=== PATIENT | female | born 1935 | race Caucasian/White ===

== ENCOUNTER 2019-01-10 08:57 | Outpatient (RCR) | payer MEDICARE, MEDICAID, SELFPAY ==
[2019-01-10 09:39] VITALS: BP 150/73; PULSE 94; RESP 18; TEMP 36.1; BMI 27.1
--- NOTE | 2019-01-10 11:21 | HP.PCM_ITS ---
(1) Cat bite involving extremity Status: Acute Current Visit: Yes (2) Abscess of right lower leg Status: Acute Current Visit: Yes Code(s): L02.415 - Cutaneous abscess of right lower limb (3) Open wound of left forearm due to cat bite Status: Acute Current Visit: Yes Code(s): S51.852A - Open bite of left forearm, initial encounter; W55.01XA - Bitten by cat, initial encounter History of Present Illness Chief Complaint: Cat bite of right leg and left forearm. History of Wound: Ms. Hayes is an 83-year-old who was in her stable state of health until Monday when she was bitten by her own cat. Was subsequently seen at an urgent care and started on doxycycline. Was also seen by her primary care physician yesterday due to worsening right lower extremity discharge. She was subsequently referred here by her primary care physician. She reports significant pain in her right leg and noted chills and subjective feeling of fever yesterday. So far, she reports compliance with the antibiotic she was prescribed ( Doxycycline ). Past Medical History Allergies/Adverse Reactions: Allergies azithromycin [From Zithromax] Adverse Reaction (Verified 01/10/19 11:15) Nausea cephalexin [From Keflex] Adverse Reaction (Verified 01/10/19 11:15) Nausea ciprofloxacin [From Cipro] Adverse Reaction (Verified 01/10/19 11:15) Nausea erythromycin base Adverse Reaction (Verified 01/10/19 11:15) Nausea sulfamethoxazole [From Bactrim] Adverse Reaction (Verified 01/10/19 11:15) Nausea trimethoprim [From Bactrim] Adverse Reaction (Verified 01/10/19 11:15) Nausea Home Medications: Ambulatory Orders Medication Instructions Recorded Omeprazole 20 mg PO DAILY 01/10/19 Smoking Status: Never smoker Review of Systems Constitutional: Reports: Chills, Fever, Malaise. Denies: Anorexia Eyes: Denies: Blurred vision, Pain HEENT: Denies: Difficulty Swallowing Cardiovascular: Denies: Chest Pain, Chest Tightness Gastrointestinal: Denies: Abdominal Pain, Hematemesis, Vomiting Skin: Denies: Jaundice - Physical Exam Vital Signs Temp Pulse Resp BP 97 F L 94 18 150/73 H 01/10/19 09:39 01/10/19 09:39 01/10/19 09:39 01/10/19 09:39 General: Alert, Oriented x3, Cooperative, No apparent distress HEENT: Atraumatic, Normocephalic Oral: Moist Mucosa Neck: Supple Lungs: Normal air movement Extremities: No cyanosis Skin: Ulcer/ Wound Wound Measurements and Assessment WC - Nurse 1 - General Ulcer Measurement Start: 01/10/19 09:12 Freq: Status: Active Protocol: Activity Type Activity Date Activity User E-Sign Co-Sign Detail Recorded Client Recorded Date Recorded By Document 01/10/19 10:08 RB [id number] 01/10/19 10:14 NAVIN 01/10/19 10:08 Wound Center Nurse 1 [Ulcer Assessment] 3. R lateral LE -Current Size (cm) - Length 0.3 -Current Size (cm) - Width 0.6 -Current Size (cm) - Depth 0.2 -Total Square Cm 0.18 -Photo Taken Yes -Tunneling No -Undermining/Tunneling No -Circular Undermining No -Exudate Amt Small -Exudate Type Serosanguineous -Granulation Amt Medium (34-66%) -Granulation Quality [place] -Slough/Fibrin Yes -Necrosis Amt Medium (34-66%) -Necrotic Tissue Type Adherent Slough -Structure Exposed N/A -Texture (Eden-wound Skin Appearance) Assessed -Moisture (Eden-wound Skin Appearance Assessed ) -Color (Eden-wound Skin Appearance) Assessed Erythema -Temperature (Eden-wound Skin No Abnormality Appearance) (Pt Warm) -Tenderness on Palpation (Eden-wound No Skin Appearance) -Ulcer Cleansing Rinsed/ Irrigated with Saline -Foul Odor after Cleansing Yes -Anesthetic Used 5% Lidocaine Gel 2. R posterior LE cluster -Combined with other wound No -Current Size (cm) - Length 3.5 -Current Size (cm) - Width 4.2 -Current Size (cm) - Depth 0.8 -Total Square Cm 14.70 -Tunneling No -Undermining/Tunneling No -Circular Undermining No -Exudate Amt Medium -Exudate Type Serosanguineous -Wound Margin Thickened & Rolled Under -Granulation Amt Medium (34-66%) -Granulation Quality [place] -Slough/Fibrin Yes -Necrosis Amt Medium (34-66%) -Necrotic Tissue Type Adherent Slough -Texture (Eden-wound Skin Appearance) Assessed -Moisture (Eden-wound Skin Appearance Assessed ) -Color (Eden-wound Skin Appearance) Erythema Hemosiderin Staining -Temperature (Eden-wound Skin No Abnormality Appearance) (Pt Warm) -Tenderness on Palpation (Eden-wound No Skin Appearance) -Ulcer Cleansing Wound Cleanser -Foul Odor after Cleansing Yes -Anesthetic Used 5% Lidocaine Gel 1. L arm medial -Combined with other wound No -Current Size (cm) - Length 0.4 -Current Size (cm) - Width 0.4 -Current Size (cm) - Depth 0.1 -Total Square Cm 0.16 -Tunneling No -Undermining/Tunneling No -Circular Undermining No -Exudate Amt Small -Exudate Type Serosanguineous -Wound Margin Distinct, Outline Attached -Granulation Amt Large (67-100%) -Granulation Quality [place] -Slough/Fibrin Yes -Necrosis Amt Small (1-33%) -Necrotic Tissue Type Adherent Slough -Structure Exposed N/A -Texture (Eden-wound Skin Appearance) Assessed -Moisture (Eden-wound Skin Appearance Assessed ) -Color (Eden-wound Skin Appearance) Assessed -Temperature (Eden-wound Skin No Abnormality Appearance) (Pt Warm) -Tenderness on Palpation (Eden-wound No Skin Appearance) -Ulcer Cleansing Wound Cleanser -Foul Odor after Cleansing No -Anesthetic Used 5% Lidocaine Gel [Edema Assessment] -Lower Limb Edema Present Yes -Right Calf (cm) 36.5 -Right Ankle (cm) 22.5 -Left Calf (cm) 34.5 -Left Ankle (cm) 20.5 WC - Nurse 2 - General Ulcer CM Notes Start: 01/10/19 09:12 Freq: Status: Active Protocol: Activity Type Activity Date Activity User E-Sign Co-Sign Detail Recorded Client Recorded Date Recorded By Document 01/10/19 10:24 MW [id number] 01/10/19 10:39 MW 01/10/19 10:24 Wound Center Nurse 2 [Procedure/Treatment] 3. R lateral LE -Time 10:29 -Correct Patient Yes -Correct Side, Site, Position Yes -Correct Procedure Yes -Procedure Performed No -Wound/Ulcer Outcome Not Healed -Ulcer Cleansing Rinsed/ Irrigated with Saline -Foul Odor after Cleansing No -Bioengineered Tissue No -Bleeding Controlled with Pressure -Offloading No -Treatment Response Procedure Tolerated Well 2. R posterior LE cluster -Time 10:30 -Correct Patient Yes -Correct Side, Site, Position Yes -Correct Procedure Yes -Procedure Performed Yes -Type of Procedure Debridement -Clinical Debridement Subcutaneous -Post Debridement Size (cm) - Length 3.5 -Post Debridement Size (cm) - Width 4.2 -Post Debridement Size (cm) - Depth 0.8 -Total Square Cm 14.70 -Wound/Ulcer Outcome Not Healed -Ulcer Cleansing Rinsed/ Irrigated with Saline -Foul Odor after Cleansing No -Bioengineered Tissue No -Injectable Lidocaine w/ Epi (%) 1 -Bleeding Controlled with Pressure -Offloading No -Treatment Response Procedure Tolerated Well 1. L arm medial -Time 10:30 -Correct Patient Yes -Correct Side, Site, Position Yes -Correct Procedure Yes -Procedure Performed No -Wound/Ulcer Outcome Not Healed -Foul Odor after Cleansing No -Bioengineered Tissue No -Bleeding Controlled with Pressure -Offloading No -Treatment Response Procedure Tolerated Well [See Physician Procedure note for Specifics] Pain Scale: 0-10 Numeric [Pain] -Is Patient Pain Free? Yes Musculoskeletal: No Muscle Wasting Neurological: Cranial nerves II-XII grossly intact Psych/Mental Status: Normal Affect Debridement Note Post-Debridement Measurements/Treatment WC - Nurse 2 - General Ulcer CM Notes Start: 01/10/19 09:12 Freq: Status: Active Protocol: Activity Type Activity Date Activity User E-Sign Co-Sign Detail Recorded Client Recorded Date Recorded By Document 01/10/19 10:24 MW [id number] 01/10/19 10:39 MW 01/10/19 10:24 Wound Center Nurse 2 3. R lateral LE -Time 10:29 -Correct Patient Yes -Correct Side, Site, Position Yes -Correct Procedure Yes -Procedure Performed No -Wound/Ulcer Outcome Not Healed -Ulcer Cleansing Rinsed/ Irrigated with Saline -Foul Odor after Cleansing No -Bioengineered Tissue No -Bleeding Controlled with Pressure -Offloading No -Treatment Response Procedure Tolerated Well 2. R posterior LE cluster -Time 10:30 -Correct Patient Yes -Correct Side, Site, Position Yes -Correct Procedure Yes -Procedure Performed Yes -Type of Procedure Debridement -Clinical Debridement Subcutaneous -Post Debridement Size (cm) - Length 3.5 -Post Debridement Size (cm) - Width 4.2 -Post Debridement Size (cm) - Depth 0.8 -Total Square Cm 14.70 -Wound/Ulcer Outcome Not Healed -Ulcer Cleansing Rinsed/ Irrigated with Saline -Foul Odor after Cleansing No -Bioengineered Tissue No -Injectable Lidocaine w/ Epi (%) 1 -Bleeding Controlled with Pressure -Offloading No -Treatment Response Procedure Tolerated Well 1. L arm medial -Time 10:30 -Correct Patient Yes -Correct Side, Site, Position Yes -Correct Procedure Yes -Procedure Performed No -Wound/Ulcer Outcome Not Healed -Foul Odor after Cleansing No -Bioengineered Tissue No -Bleeding Controlled with Pressure -Offloading No -Treatment Response Procedure Tolerated Well Pain Scale: 0-10 Numeric Is Patient Pain Free? Yes Wound debrided: Right Lower Extremity ( Posterior ) Wound Grade/Stage: Stage III Type of Debridement: Excisional debridement Anesthesia Used: 4% Lidocaine Solution Depth: in the subcutaneous layer Percentage of wound debrided: 100 Instrument Used: 5mm curette Tissue Removed: Necrotic tissue and devitalized tissue Severity: Necrosis of Muscle Amount of bleeding with debridement: Moderate Bleeding Controlled with: Pressure Patient did not tolerate procedure well Assessment/Plan Active Problems Cat bite involving extremity (Acute) Abscess of right lower leg (Acute) Open wound of left forearm due to cat bite (Acute) Assessment: Right lower extremity abscess with necrotic tissue extending to the muscles post cat bite. Plan: Debridement attempted at the wound center however significant depth and necrotic tissue as described above. Purulent discharge as well. Patient in so much pain and could not tolerate debridement here. I however believe that she would require surgical debridement and so I referred her to the emergency room for possible consult/evaluation by plastic surgery/orthopedic surgery. Case discussed with emergency room physician. Their ( Here with her daughter ) questions were answered and they were advised to call with any further questions or concerns. This note was generated with [employer] software. It may contain incorrect words, spelling, and punctuation that were not noted in checking the note before signing.
== END 2019-01-18 23:59 ==
LOC: WC 08:57
PROVIDERS: Family Provider Family Medicine; PCP Family Medicine; Visit Provider Internal Medicine
DX: S51.852A Open bite of left forearm, initial encounter (principal); W55.01XA Bitten by cat, initial encounter; L02.415 Cutaneous abscess of right lower limb
CPT/HCPCS: 11042; 99203; G0463

== ENCOUNTER 2019-01-10 11:12 | Inpatient (IN) | payer MEDICARE, MEDICAID, SELFPAY ==
[2019-01-10 09:39] VITALS: BMI 27.1
[2019-01-10 11:12] VITALS: BP 144/75; PULSE 98; RESP 16; TEMP 36.6; O2SAT 96; BMI 27.1
--- NOTE | 2019-01-10 11:37 | ED.VISSUMM ---
- ER Visit Summary Date of Service: 01/10/19 Chief Complaint cat bite right calf Monday on doxycycline seen by wound care sent to the ER failed outpatient therapy to be seen by plastic surgery or Ortho History of Present Illness: The patient is a 83 F [] is healthy she indicates her cat became aggravated she tried to assist the cat and the cat ended up biting her and scratching her right lower leg Monday she was seen in urgent care shortly thereafter started on doxycycline she can follow-up with her primary care physician Monday who referred her to [facility], she was seen there today by Dr bustillo, after evaluation center to the emergency department to be further evaluated by Dr. ackerman of plastic surgery or Dr. Jackson of orthopedics for further debridement and inpatient management as she is failed outpatient management She reports area is red and tender there is been no drainage she indicates she is able to walk but has pain she had no nausea or vomiting or fever she is not prone to infection she denies any other past history Physical Examination: [] v signs within normal range General, no distress resting comfortably HEENT is generally unremarkable The neck is supple no adenopathy Cardiovascular, regular rate and rhythm Lungs, clear bilateral Abdomen, soft nontender Extremities, right lower leg mid calf position there is a bite dennis with multiple puncture wounds that have some blackness to them, there is no drainage there is redness about 4 to 6 cm circular pattern no lymphangitic streaking the calf is tender but again no signs of deep-seated infection at this time the distal ankle area there is a contusion over the lateral malleolus she loosening of twisted her ankle then as well, but she has no pain to palpation and full range of motion was able to walk she has multiple scratch perez throughout the right lower leg the left lower leg and upper extremities are unremarkable Neurologic, awake alert answering questions appropriately moving all 4 extremities Test Results: [] Emergency Department Course and Treatment: [] Staff spoke with plastic surgery office they are not available to see the patient we have paged orthopedics at this time we will start IV fluids screening labs IV antibiotics she will likely require inpatient management due to failure of outpatient therapy and will try to arrange subspecialty consultation either through the emergency department or after admission Treatment Plan: [] Screening labs are unremarkable IV fluids and biotics given, I did speak with orthopedics who recommended the plastic surgery be consulted once the patient gets admitted, I spoke with the hospitalist explained all the above to them and they will arrange for admission and further subspecialty management Disposition: [] Admit after hospitalist evaluation Impression: [] Cat bite right lower leg failure of outpatient therapy This note was generated with Vudu dictation software. It may contain incorrect words, spelling, and punctuation that were not noted in review of the chart prior to signing ED Disposition - Plan for ED Patient: Referrals: Marifer Marquez [Primary Care Provider] -
[2019-01-10] MEDS: Ondansetron 4 MG/2 ML Vial IV ×2 (11:58→18:42)
[2019-01-10] MEDS: morphine 8 MG/ML Syringe IV (11:58)
[2019-01-10] MEDS: 0.9% Normal Saline 1,000 ML 100 ML IV ×2 (11:59→22:41)
[2019-01-10 12:17] LABS: Absolute Lymphocyte Count 0.58 X10^3/ul (0.83-4.51); Absolute Neutrophil Count 5.9 X10^3/uL (2.0-7.7); Basophil# 0.02 X10^3/uL; Basophil% 0.3 % (0-1); Eosinophil# 0.01 X10^3/uL; Eosinophils% 0.1 % (0-5); Hematocrit 34.1 % (37-47); Lymphocyte # 0.58 X10^3/ul (4.0); Lymphocyte % 8.5 % (19-41); Mean Corp Hgb Conc 32.3 g/gl (32-36); Mean Corpuscular Hgb 31.3 pg (27.0-32.0); Mean Corpuscular Volume 97.2 fL (81-99); Mean Platelet Vol. 9.7 fl (6.2-12.0); Monocyte# 0.35 X10^3/uL; Monocyte% 5.1 % (0-10); Neutrophil # 5.88 X10^3/uL (2.7-7.7); Neutrophil % 85.9 % (47-70); Platelet Count 293 K/mm3 (150-450); RBC Distribution Width CV 12.6 % (11.6-14.6); RBC Distribution Width SD 42.9 fl (35.1-43.9); Red Blood Count 3.51 M/mm3 (4.2-5.4); White Blood Count 6.9 K/mm3 (4.4-11.0)
[2019-01-10 12:18] LABS: Differential Indicated SCAN CRITERIA MET; POSITIVE COUNT NO; POSITIVE DIFFERENTIAL YES; POSITIVE MORPHOLOGY NO
--- NOTE | 2019-01-10 12:20 | RAD_ITS ---
STUDY: X-RAY - RIGHT TIBIA AND FIBULA REASON FOR EXAM: Female, 83 years old. Pain and swelling and redness following cat bite. TECHNIQUE: 2 view(s) of the tibia and fibula were obtained. COMPARISON: None. FINDINGS: Normal visualized tibia. Normal visualized fibula. Focal soft tissue laceration is seen along the posterior mid calf. No radiopaque foreign body is seen. RAD/Tibia & Fibula 2 Views IMPRESSION: Soft tissue laceration in the posterior mid calf. Electronically Signed: Diomedes Peres, at 12:45 EDT , Service support ,
[2019-01-10 12:28] LABS: Anion Gap 4 (5-15); BUN 7 mg/dL (7-18); BUN/Creat Ratio 14.9 RATIO (10-20); Calcium,Total 9.8 mg/dL (8.5-10.1); Chloride 109 mmol/L (98-107); Creatinine, Serum 0.47 mg/dL (0.55-1.02); EST Glomerular Filtration Rate 135 mL/min (>60); Est Glom Filt Rate - Afr Amer 163 mL/min (>60); Estimated Creatinine Clearance 37.45 ml/min; Glucose 96 mg/dL (74-106); Potassium 3.5 mmol/L (3.5-5.1); Sodium Level 140 mmol/L (136-145)
--- NOTE | 2019-01-10 12:37 | HP.PCM_ITS ---
History of Present Illness Date of Admission: 01/10/19 Chief Complaint: pain in right calf, cat bite The patient is a 83 year old F with no significant past medical history. She was admitted through the ED on 01/10/2019. Patient states she was bitten by her cat on her right lower extremity 6 days ago on Monday. She subsequently noticed redness and discharge from the puncture wounds on her right calf. She went to the urgent care center and was prescribed doxycycline which she was compliant with. However redness and swelling did not resolve and worsened. She also went to her PCP who referred her to the wound care clinic today. Patient went to the wound care clinic where debridement was attempted but this was unsuccessful due to severe pain and was also noted that there was necrotic tissue extending to the calf muscles. She was therefore referred to the emergency room for debridement by plastic surgery orthopedic surgery. Patient does admit to a subjective feeling of fever and chills as well as at home but has been able to weight-bear on the leg. She has noticed discharge from the puncture wound site as well as increasing redness. Review of systems is otherwise negative. Vitals in the ED was stable and CBC showed no leukocytosis. X-ray of the right tibia and fibula showed soft tissue laceration in the posterior mid calf. She was started on IV Zosyn in the ED. She has been admitted to be managed for cellulitis of the right lower extremity due to cat bite. [] Past Medical History Allergies azithromycin [From Zithromax] Adverse Reaction (Verified 01/10/19 11:15) Nausea cephalexin [From Keflex] Adverse Reaction (Verified 01/10/19 11:15) Nausea ciprofloxacin [From Cipro] Adverse Reaction (Verified 01/10/19 11:15) Nausea erythromycin base Adverse Reaction (Verified 01/10/19 11:15) Nausea sulfamethoxazole [From Bactrim] Adverse Reaction (Verified 01/10/19 11:15) Nausea trimethoprim [From Bactrim] Adverse Reaction (Verified 01/10/19 11:15) Nausea Home Medications: Ambulatory Orders Medication Instructions Recorded Doxycycline Hyclate 100 mg PO BID 01/10/19 Omeprazole 20 mg PO DAILY 01/10/19 Surgical History: no surgical history Psychiatric History: No pertinent psych hx 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 Denies: Anorexia, Malaise, Weakness, Fatigue Eyes: Denies: Blurred vision HEENT: Denies: Head Aches, Sinus Congestion, Sinus Drainage Cardiovascular: Denies: Chest Pain, Chest Pressure, Light Headedness, Orthopnea, Palpitations Respiratory: Denies: Cough, Shortness of breath at rest, Sputum production Gastrointestinal: Denies: Abdominal Pain, Nausea, Vomiting Genitourinary: Denies: Dysuria Musculoskeletal: Reports: Leg Pain, Muscle pain Skin: Reports: Wounds. Denies: Rash Neurological: Denies: Numbness, Tingling, Focal weakness Psychiatric: Denies: Anxiety, Depression, Homicidal Ideations, Suicidal Ideations Hematologic/ Lymphatic: Denies: Easy Bruising, Easy Bleeding VTE Information - Inpt Only VTE Present on Admission: No VTE Pharm Prophylaxis ordered?: Yes Patient Problems: Active and Suspected Problems Cat bite involving extremity (Acute) Abscess of right lower leg (Acute) Open wound of left forearm due to cat bite (Acute) - Physical Exam General: Alert, Oriented x3, Cooperative, No apparent distress HEENT: Atraumatic, PERRLA, EOMI, Normocephalic Oral: Moist Mucosa Neck: Supple, No JVD, Negative Carotid Bruits Lungs: Clear to auscultation, Normal air movement, No rhonchi, No wheeze, No rales Cardiovascular: Regular rate, Regular Rhythm, Normal S1, Normal S2, No murmurs Abdomen: Bowel Sounds Present, Soft, Non Tender, Non-Distended, No Hepato- splenomegaly Extremities: No edema, Capillary Refill Less than 3 Seconds Skin: - - blackened puncture wounds (2) on calf, with surrounding erythema and swelling as well as tenderness. has numerous scratch perez over calf and henson. has clear drainage from puncture wounds. Musculoskeletal: - - tenderness on palpation of calf area. Lymphatic: No Cervical, Supraclavicular, or Inguinal Adenopathy Neurological: Cranial nerves II-XII grossly intact, Neuro grossly intact Psych/Mental Status: Normal Affect, Appropriate, Alert and oriented to time, place, person, mood and affect Vital Signs Temp Pulse Resp BP Pulse Ox 98 F 98 16 144/75 H 96 01/10/19 11:12 01/10/19 11:12 01/10/19 11:12 01/10/19 11:12 01/10/19 11:12 Oxygen Delivery Method Room Air Weight: 158 lb Body Mass Index (BMI) 27.1 Laboratory Tests Past 24 Hrs 01/10/19 01/10/19 12:02 12:02 WBC 6.9 RBC 3.51 L Hgb 11.0 L Hct 34.1 L MCV 97.2 MCH 31.3 MCHC 32.3 RDW 12.6 RDW Differential 42.9 Plt Count 293 MPV 9.7 Immature Gran % (Auto) 0.100 Neut % (Auto) 85.9 H Lymph % (Auto) 8.5 L Early % (Auto) 5.1 Eos % (Auto) 0.1 Baso % (Auto) 0.3 Absolute Neuts (auto) 5.9 Absolute Lymphs (auto) 0.58 L Total Counted Pending Sodium 140 Potassium 3.5 Chloride 109 H Carbon Dioxide 27.0 Anion Gap 4 L BUN 7 Creatinine 0.47 L Estim Creat Clear Calc 37.45 Est GFR (MDRD) Af Amer 163 Est GFR (MDRD) Non-Af 135 BUN/Creatinine Ratio 14.9 Glucose 96 Calcium 9.8 Diagnostic Data Tibia/Fibula X-Ray 01/10/19 12:20 IMPRESSION: Soft tissue laceration in the posterior mid calf. Electronically Signed: Diomedes Peres, at 12:45 EDT , Service support , Assessment/Plan All Active Problems Cat bite involving extremity (Acute) Abscess of right lower leg (Acute) Open wound of left forearm due to cat bite (Acute) 83 y/o female admitted with redness and swelling of lower extremity 1. Cellulitis of the RLE due to cat bite * has necrotic tissue at puncture sites with oozing at puncture sites * admit to Med surg * order blood cultures * consult wound care nurse * consult plastic surgery for debridement * started on IV zosyn; will continue * tylenol prn for pain * cellulitic area demarcated with body marker * will get duplex of LE * DVT prophylaxis: lovenox Code Visit Inpatient E&M: 97669 Subs Hosp L3
--- NOTE | 2019-01-10 13:08 | CASEMGMT ---
RN CM Assessment Introduced role of RN CM to patient and patient Dtr Kinsey.? Patient is alert, oriented and able?to participate in RN CM Assessment. ?Care providers, pharmacy, and demographics verified. Presentation: Patient Cat bit her Rt Calf Monday, seen at and placed on Abx Doxycycline, f/u w/pcp Monday and referred to [facility]- seen Dr Diaz there today and referred to ER for failed Outpt Tx and to be evaluated by plastic surgeon Dr Salinas or Ortho Dr Jackson-Per ER MD Note. C/o Redness and Pain to Rt LE. Admit Dx: Cellulitis Re-Admit: No Barriers/Issues: None. PCP: Marifer Marquez Specialists: None Preferred Pharmacy: [facility] Insurance: [employer], [employer]AC[employer] Rx Benefit:?Yes LNOK: Dtr Kinsey Nadir LW/HPOA: Yes both, aware not on file at [facility], HPOA- Son Sawyer Durbin Living Arrangements:?Lives alone in a mobile home, 4 steps to enter ADL?s: Independent with ambulation and ADL's Transportation: Patient drives, Dtr Kinsey to drive on [place] DME: None HHC: Past. If HHC needed, no preference on Agency SNF: None Goal: Home, does not think will have any needs. States her children live nearby and would be able to help her if needed, good support system. DC PLAN: Home with possible HHC Wound Care vs Wound Ctr, Possible IV ABX- If Home IV Abx, states no preference on Infusion Ctr. Tiffanie Hernandez RNCM
[2019-01-10 13:34] VITALS: BP 128/80; PULSE 92; RESP 18; TEMP 36.5; O2SAT 98; BMI 27.2
--- NOTE | 2019-01-10 14:12 | VDLE_ITS ---
Reason For Study: RLE swelling/redness/cellulitis RIGHT LEFT GSV is normal. CFV is compressible, spontaneous, phasic, CFV is compressible, spontaneous, phasic, competent, and demonstrates normal competent and demonstrates normal augmentation. augmentation. FV is compressible, spontaneous, phasic, competent and demonstrates normal augmentation. POP V is compressible, spontaneous, phasic, competent and demonstrates normal augmentation. T/P Trunk is compressible. PTV is compressible. RT PerV is compressible. Procedure Exam performed portable in patient room. The study was technically limited. Unable to assess RT calf area due to open wound from cat bite. A preliminary report was called and/or faxed to [facility]. Interpretation Summary There is no evidence of right lower extremity deep vein thrombosis. Right greater saphenous vein appears patent and compressible segmentally. Normal flow patterns left common femoral vein Technically limited study as noted. Ordering Physician: Daja Del Castillo Referring Physician: Marifre Marquez Performed By: Rochelle Prater, KALYN, RVT
--- NOTE | 2019-01-10 14:39 | NURSING ---
wound photo: left forearm
--- NOTE | 2019-01-10 14:40 | NURSING ---
Addendum entered by Ivette Potter 01/10/19 14:42: right medial calf Original Note: wound photo: left medial calf
--- NOTE | 2019-01-10 14:41 | NURSING ---
wound photo: right lateral lower leg
--- NOTE | 2019-01-10 14:46 | CT_ITS ---
STUDY: CT LOWER EXTREMITY WITHOUT CONTRAST RIGHT REASON FOR EXAM: Female, 83 years old. Cat bite infection right lower leg. RADIATION DOSAGE (If Supplied By Facility): CTDIvol = ( 6.67 ) mGy, DLP = ( 342.09 ) mGycm. Individualized dose optimization techniques were used for this CT.? TECHNIQUE: Axial images were obtained from the knee through the ankle without contrast. Coronal and sagittal reformats were performed. COMPARISON: X-ray 01/10/2019. FINDINGS: There is a small joint effusion. There is moderate to severe osteoarthrosis of the patellofemoral compartment with joint space narrowing, lateral spurring, and subchondral cyst formation. There is lateral subluxation of the patella. There is no fracture or dislocation. No destructive bone changes are present. Soft tissue defect is noted in the posterior subcutaneous tissues at the calf level. There is mild infiltration of the subcutaneous fat consistent with edema or infection. There is no obvious organized collection. There is mild soft tissue gas consistent with bite wound/penetrating injury. Foci of gas extend to the perimuscular fascia superficial to the medial head of the gastrocnemius muscle. There is no gas or obvious inflammatory change deep to the fascia. Muscles of the leg are intact, with no hematoma. CT/Extremity Lower without Contra IMPRESSION: 1. Soft tissue swelling and gas consistent with bite wound. There is no organized collection. 2. Osteoarthrosis of the right knee. 3. Small knee effusion. Electronically Signed: Yasmeen Amaya MD at 17:22 EDT Tel , Service support ,
--- NOTE | 2019-01-10 14:50 | PCM.CONS.GEN ---
Reason for Consult Date of Consultation: 01/10/19 Reason for Consultation: Draining cat bite infection right posterior leg. REFERRING PHYSICIAN: Dr. Del Castillo. INSIDE SALES DIRECTOR: Dr. Davis. History of Present Illness: The patient is a 83 year old F who was bitten by her cat of 10 years 6 days ago. She sustained wounds to left volar forearm and right posterior leg. She started developing pain and redness and swelling. She went to the urgent care center who placed her on Doxycycline. Her symptomatology worsened and a few days later her PCP sent her to the [facility]. His WBC was 6.9. He was given Zosyn. After admission, he was started on Cleocin. She denied fever. I was asked to evaluate this patient for surgical options for treatment. Past Medical History Allergies azithromycin [From Zithromax] Adverse Reaction (Verified 01/10/19 11:15) Nausea cephalexin [From Keflex] Adverse Reaction (Verified 01/10/19 11:15) Nausea ciprofloxacin [From Cipro] Adverse Reaction (Verified 01/10/19 11:15) Nausea erythromycin base Adverse Reaction (Verified 01/10/19 11:15) Nausea sulfamethoxazole [From Bactrim] Adverse Reaction (Verified 01/10/19 11:15) Nausea trimethoprim [From Bactrim] Adverse Reaction (Verified 01/10/19 11:15) Nausea Current Medications Acetaminophen (Tylenol) 650 mg PO Q6H PRN Enoxaparin Sodium (Lovenox) 40 mg SC DAILY@1000 DIMAS Glucagon () 1 mg IM .X1 PRN Clindamycin Phosphate 900 mg/ (Dextrose) 106 mls @ 75 mls/hr IV Q8 DIMAS Oxycodone HCl (Oxyir) 5 mg PO Q4H PRN Pantoprazole Sodium (Protonix) 20 mg PO DAILY [facility] Home Medications: Ambulatory Orders Medication Instructions Recorded Omeprazole 20 mg PO DAILY 01/10/19 Surgical History: no surgical history Psychiatric History: No pertinent psych hx 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 Denies: Anorexia, Malaise, Weakness, Fatigue. Eyes: Denies: Blurred vision. HEENT: Denies: Head Aches, Sinus Congestion, Sinus Drainage. Cardiovascular: Denies: Chest Pain, Chest Pressure, Light Headedness, Orthopnea, Palpitations. Respiratory: Denies: Cough, Shortness of breath at rest, Sputum production. Gastrointestinal: Denies: Abdominal Pain, Nausea, Vomiting. Genitourinary: Denies: Dysuria. Musculoskeletal: Reports: Leg Pain, Muscle pain. Skin: Reports: Wounds. Denies: Rash. Neurological: Denies: Numbness, Tingling, Focal weakness. Psychiatric: Denies: Anxiety, Depression, Homicidal Ideations, Suicidal Ideations. Hematologic/ Lymphatic: Denies: Easy Bruising, Easy Bleeding Patient Problems: Active and Suspected Problems Open bite of right lower leg (Acute) infected cat bite wounds right posterior leg Cat bite (Acute) Cat bite involving extremity (Acute) Abscess of right lower leg (Acute) Open wound of left forearm due to cat bite (Acute) - Physical Exam General: Alert, Oriented x3. HEENT: PERRLA, EOMI. Oral: Moist Mucosa. Neck: Supple, Nontender. No cervical adenopathy. Lungs: Clear to auscultation. Cardiovascular: Regular rate, Regular Rhythm. Abdomen: Soft, Non-Distended. Extremities: Mild swelling right posterior leg. Tender to palpation. Some fat necrosis present with drainage. Multiple puncture wounds on posterior aspect. Surrounding erythema and swelling and tenderness. Measures 6 cm. Mild swelling right proximal lateral leg. Tender to palpation. Some fat necrosis present with purulent drainage. Multiple puncture wounds present. Some erythema present. Measures 5 cm. Dorsalis pedis pulses palpable. No inguinal adenopathy. Mild swelling volar radial left forearm. Good range of motion of fingers and wrist left hand. Small cat bite abrasion mid volar radial aspect. Nontender. No redness. No drainage. Radial pulses are palpable. No axillary adenopathy. No sensory deficits. Lymphatic: No Cervical, Supraclavicular, Axillary or Inguinal Adenopathy Neurological: Cranial nerves II-XII grossly intact. Psych/Mental Status: Normal Affect, Appropriate, Alert and oriented to time, place, person, mood and affect. Vital Signs Temp Pulse Resp BP Pulse Ox 97.7 F L 92 18 128/80 H 98 01/10/19 13:34 01/10/19 13:34 01/10/19 13:34 01/10/19 13:34 01/10/19 13:34 Oxygen Delivery Method Room Air Weight: 158 lb 11.2 oz Body Mass Index (BMI) 27.2 Laboratory Tests Past 24 Hrs 01/10/19 01/10/19 01/10/19 12:02 12:02 13:45 WBC 6.9 RBC 3.51 L Hgb 11.0 L Hct 34.1 L MCV 97.2 MCH 31.3 MCHC 32.3 RDW 12.6 RDW Differential 42.9 Plt Count 293 MPV 9.7 Immature Gran % (Auto) 0.100 Neut % (Auto) 85.9 H Lymph % (Auto) 8.5 L [place] % (Auto) 5.1 Eos % (Auto) 0.1 Baso % (Auto) 0.3 Absolute Neuts (auto) 5.9 Absolute Lymphs (auto) 0.58 L Total Counted Not Reportable Differential Comment COMMENT Sodium 140 Potassium 3.5 Chloride 109 H Carbon Dioxide 27.0 Anion Gap 4 L BUN 7 Creatinine 0.47 L Estim Creat Clear Calc 37.45 Est GFR (MDRD) Af Amer 163 Est GFR (MDRD) Non-Af 135 BUN/Creatinine Ratio 14.9 Glucose 96 Calcium 9.8 S.aureus Protein A PCR Pending MRSA (PCR) Pending Diagnostic Data Tibia/Fibula X-Ray 01/10/19 12:20 IMPRESSION: Soft tissue laceration in the posterior mid calf. Electronically Signed: Diomedes Peres, at 12:45 EDT , Service support , Assessment/Plan All Active Problems Open bite of right lower leg (Acute) Cat bite (Acute) Cat bite involving extremity (Acute) Abscess of right lower leg (Acute) Open wound of left forearm due to cat bite (Acute) 1. Infected cat bite wounds right posterior leg and right proximal lateral leg. 2. Nontender cat bite abrasion mid volar radial aspect left forearm. 3. Bitten by cat. Continue Cleocin antibiotics. Added Levaquin. A wound culture and MRSA Wound DNA by PCR were done today. Check a CT to evaluate for possible injury deep to the muscle. Patient needs operative intervention with surgical preparation right posterior leg and right proximal lateral leg with incision and drainage and excisional debridement infected cat bite wounds. Will leave the wounds open and begin postop care with the VAC and BERTIN wrap for compression. Tissue will be sent to Pathology for analysis and to Microbiology for culture. A positive culture will necessitate antibiotic therapy. If there is a plateau in the healing of the wound, can proceed with delayed closure with skin grafting. Keep right leg elevated when sitting. It is ok to ambulate. Minimize standing. Anticipate increased metabolic demands from the infection and from the surgery. Will check a Prealbumin and encourage nutritional supplementation with protein to help the healing process. The cat bite abrasion left forearm is nontender without evidence of infection and appears stable at this time. Can observe at present. If infection develops in the future, would need operative incision and drainage. Surgery will be done tomorrow under general anesthesia. Patient was informed of the risks and complications of the procedure including alternatives to surgery. These were discussed with the patient personally. Patient voices understanding and wishes to proceed. After discharge, can followup at the Wound Center. Code Visit Inpatient E&M: 23501 Init Hosp L2 - ICD-10 - W55.01xA, L02.415, S81.851A, S51.852A
--- NOTE | 2019-01-10 14:52 | CASEMGMT ---
Patient has both a Healthcare POA and Healthcare LW and she is aware they are not on file at [facility]. Ro SHAH MSW
[2019-01-10] MEDS: Acetaminophen 325 MG Tablet 650 MG PO ×2 (15:47→21:43)
[2019-01-10 16:11] LABS: M R Staph aureus DNA By PCR Negative (Negative); Staph aureus DNA By PCR NEGATIVE (Negative)
[2019-01-10 16:12] LABS: Probe Check PASS; Specimen Processing Control PASS
[2019-01-10] MEDS: levoFLOXacin IV 750 MG/150 ML BAG 100 MG IV (17:28)
[2019-01-10 19:30] VITALS: BP 128/77; PULSE 81; RESP 18; TEMP 37.1; O2SAT 96
[2019-01-10 21:45] VITALS: BP 125/69; PULSE 86; RESP 18; TEMP 37.1; O2SAT 95
[2019-01-11] VITALS (11 sets, daily range): BP systolic 126–144; BP diastolic 56–84; PULSE 77–100; RESP 16–18; TEMP 36.7–37.3; O2SAT 94–100; BMI 27.2
--- NOTE | 2019-01-11 05:58 | EKG12_ITS ---
Test Reason : PRE OP Blood Pressure : / mmHG Vent. Rate : 086 BPM Atrial Rate : 086 BPM P-R Int : 156 ms QRS Dur : 090 ms QT Int : 398 ms P-R-T Axes : 034 -09 044 degrees QTc Int : 476 ms Normal sinus rhythm Nonspecific ST abnormality Abnormal ECG No previous ECGs available Confirmed by WINTER REYNOLDS ([id number]), editor city GLENDY RENEE ([id number]) on 01/16/2019 12:52:27 PM Referred By: Daja Del Castillo Confirmed By:KALLIE REYNOLDS
[2019-01-11 07:41] LABS: Erythrocyte Sedimentation Rate 7 mm/hr (0-30)
[2019-01-11 07:42] LABS: Absolute Lymphocyte Count 0.61 X10^3/ul (0.83-4.51); Absolute Neutrophil Count 4.3 X10^3/uL (2.0-7.7); Basophil# 0.03 X10^3/uL; Basophil% 0.6 % (0-1); Eosinophil# 0.03 X10^3/uL; Eosinophils% 0.6 % (0-5); Hematocrit 29.8 % (37-47); Hemoglobin 9.6 g/dl (12.0-15.0); Lymphocyte # 0.61 X10^3/ul (4.0); Lymphocyte % 11.3 % (19-41); Mean Corp Hgb Conc 32.2 g/gl (32-36); Mean Corpuscular Hgb 31.4 pg (27.0-32.0); Mean Corpuscular Volume 97.4 fL (81-99); Mean Platelet Vol. 9.5 fl (6.2-12.0); Monocyte# 0.38 X10^3/uL; Neutrophil # 4.34 X10^3/uL (2.7-7.7); Neutrophil % 79.9 % (47-70); Platelet Count 249 K/mm3 (150-450); Red Blood Count 3.06 M/mm3 (4.2-5.4); White Blood Count 5.4 K/mm3 (4.4-11.0)
[2019-01-11 07:43] LABS: POSITIVE COUNT NO; POSITIVE DIFFERENTIAL NO; POSITIVE MORPHOLOGY NO
[2019-01-11] MEDS: Pantoprazole Sodium 20 MG Tablet PO (07:48)
[2019-01-11 08:09] LABS: Anion Gap 4 (5-15); BUN 5 mg/dL (7-18); BUN/Creat Ratio 11.1 RATIO (10-20); Chloride 109 mmol/L (98-107); Creatinine, Serum 0.45 mg/dL (0.55-1.02); EST Glomerular Filtration Rate 141 mL/min (>60); Est Glom Filt Rate - Afr Amer 171 mL/min (>60); Estimated Creatinine Clearance 37.45 ml/min; Glucose 95 mg/dL (74-106); Potassium 3.5 mmol/L (3.5-5.1); Prealbumin 16.8 mg/dL (20.0-40.0); Sodium Level 140 mmol/L (136-145)
[2019-01-11] MEDS: Acetaminophen 325 MG Tablet 650 MG PO ×3 (08:19→21:50)
--- NOTE | 2019-01-11 09:48 | PCM.PN.HOSP ---
Patient Problems: Active and Suspected Problems Open bite of right lower leg (Acute) infected cat bite wounds right posterior leg Cat bite (Acute) Cat bite involving extremity (Acute) Abscess of right lower leg (Acute) Open wound of left forearm due to cat bite (Acute) Subjective: Patient seen and examined. She has no complaints this morning. She only gets pain with her right lower extremity when she moves it. Review of systems otherwise negative. She is due for debridement by Dr. Reyes today. Labs and vitals reviewed. Vitals/I&O's: Vital Signs Temp Pulse Resp BP Pulse Ox 98.4 F 86 18 126/56 H 94 01/11/19 07:53 01/11/19 07:53 01/11/19 07:53 01/11/19 07:53 01/11/19 07:53 Oxygen Delivery Method Room Air Weight: 158 lb 11.2 oz Body Mass Index (BMI) 27.2 Intake and Output for Last 24 Hours 01/09/19 01/10/19 01/11/19 23:59 23:59 23:59 Intake Total 601 / 601 2064 Balance 601 / 601 2064 General: Alert, Oriented x3, Cooperative, No apparent distress HEENT: Atraumatic, PERRLA, EOMI, Normocephalic Oral: Moist Mucosa Neck: Supple, No JVD, Negative Carotid Bruits Lungs: Clear to auscultation, Normal air movement, No rhonchi, No wheeze, No rales Cardiovascular: Regular rate, Regular Rhythm, Normal S1, Normal S2, No murmurs Abdomen: Bowel Sounds Present, Soft, Non Tender, Non-Distended, No Hepato-splenomegaly Extremities: No edema, Capillary Refill Less than 3 Seconds Skin: - - RLE calf wrapped in clean bandage. Musculoskeletal: - - tenderness on palpation of calf area. Lymphatic: No Cervical, Supraclavicular, or Inguinal Adenopathy Neurological: Cranial nerves II-XII grossly intact, Neuro grossly intact Psych/Mental Status: Normal Affect, Appropriate, Alert and oriented to time, place, person, mood and affect Laboratory Results 01/10/19 12:02: WBC 6.9, RBC 3.51 L, Hgb 11.0 L, Hct 34.1 L, MCV 97.2, MCH 31.3, MCHC 32.3, RDW 12.6, RDW Differential 42.9, Plt Count 293, MPV 9.7, Immature Gran % (Auto) 0.100, Neut % (Auto) 85.9 H, Lymph % (Auto) 8.5 L, [place] % (Auto) 5.1, Eos % (Auto) 0.1, Baso % (Auto) 0.3, Absolute Neuts (auto) 5.9, Absolute Lymphs (auto) 0.58 L, Total Counted Not Reportable, Differential Comment COMMENT 01/10/19 12:02: Sodium 140, Potassium 3.5, Chloride 109 H, Carbon Dioxide 27.0, Anion Gap 4 L, BUN 7, Creatinine 0.47 L, Estim Creat Clear Calc 37.45, Est GFR (MDRD) Af Amer 163, Est GFR (MDRD) Non-Af 135, BUN/Creatinine Ratio 14.9, Glucose 96, Calcium 9.8 01/10/19 13:45: S.aureus Protein A PCR NEGATIVE, MRSA (PCR) Negative 01/11/19 06:08: WBC 5.4, RBC 3.06 L, Hgb 9.6 L, Hct 29.8 L, MCV 97.4, MCH 31.4, MCHC 32.2, RDW 13.0, RDW Differential 46.0 H, Plt Count 249, MPV 9.5, Immature Gran % (Auto) 0.600, Neut % (Auto) 79.9 H, Lymph % (Auto) 11.3 L, [place] % (Auto) 7.0, Eos % (Auto) 0.6, Baso % (Auto) 0.6, Absolute Neuts (auto) 4.3, Absolute Lymphs (auto) 0.61 L, Total Counted Not Reportable, ESR 7 01/11/19 06:08: Sodium 140, Potassium 3.5, Chloride 109 H, Carbon Dioxide 27.0, Anion Gap 4 L, BUN 5 L, Creatinine 0.45 L, Estim Creat Clear Calc 37.45, Est GFR (MDRD) Af Amer 171, Est GFR (MDRD) Non-Af 141, BUN/Creatinine Ratio 11.1, Glucose 95, Calcium 9.0, C-React Prot Ext Range 11.90 H, Prealbumin 16.8 L Diagnostic Data Tibia/Fibula X-Ray 01/10/19 12:20 IMPRESSION: Soft tissue laceration in the posterior mid calf. Electronically Signed: Diomedes Emilianasamsoraida, at 12:45 EDT , Service support , Lower Extremity CT 01/10/19 14:46 IMPRESSION: 1. Soft tissue swelling and gas consistent with bite wound. There is no organized collection. 2. Osteoarthrosis of the right knee. 3. Small knee effusion. Electronically Signed: Yasmeen Amaya MD at 17:22 EDT Tel , Service support , Current Medications Acetaminophen (Tylenol) 650 mg PO Q6H PRN PRN PRN Reason: Mild Pain (1-3)/Temp > 100.7 F Last Admin: 01/11/19 08:19 Dose: 650 mg Dextrose (D50w Syringe) 0 gm IV X1 PRN; Protocol PRN Reason: Hypoglycemia Enoxaparin Sodium (Lovenox) 40 mg SC DAILY@1000 DIMAS Last Admin: 01/11/19 07:19 Dose: Not Given Glucagon () 1 mg IM .X1 PRN PRN Reason: Hypoglycemia Sodium Chloride () 1,000 mls @ 100 mls/hr IV .Q10H [facility] Last Admin: 01/10/19 22:41 Dose: 100 mls/hr Clindamycin Phosphate 900 mg/ (Dextrose) 106 mls @ 75 mls/hr IV Q8 [facility] Last Admin: 01/11/19 05:41 Dose: 75 mls/hr Levofloxacin (Levaquin Iv) 750 mg in 150 mls @ 100 mls/hr IV Q48 [facility] Last Admin: 01/10/19 17:28 Dose: 100 mls/hr Ondansetron HCl (Zofran) 4 mg IV Q6H PRN PRN PRN Reason: NAUSEA Last Admin: 01/10/19 18:42 Dose: 4 mg Oxycodone HCl (Oxyir) 5 mg PO Q4H PRN PRN PRN Reason: Moderate Pain (4-6/10) Pantoprazole Sodium (Protonix) 20 mg PO DAILY [facility] Last Admin: 01/11/19 07:48 Dose: 20 mg Medical Necessity - Tobacco Use Smoking Status: Never smoker Assessment/Plan All Active Problems Open bite of right lower leg (Acute) Cat bite (Acute) Cat bite involving extremity (Acute) Abscess of right lower leg (Acute) Open wound of left forearm due to cat bite (Acute) 83 y/o female admitted with redness and swelling of lower extremity 1. Cellulitis of the RLE due to cat bite currently on IV clindamycin and IV levaquin CT of hte RLE showed soft tissue welling and gas consistent with bite wound, with no organised colection, osteoarthrosis of the right knee and small knee effusion. for debridement by plastic surgery today duplex of RLE pending. blood cultures pending DVT prophylaxis: lovenox Code Visit Inpatient E&M: 67785 Subs Hosp L3
--- NOTE | 2019-01-11 09:53 | PN_ITS ---
Patient Problems: Active and Suspected Problems Open bite of right lower leg (Acute) infected cat bite wounds right posterior leg Cat bite (Acute) Cat bite involving extremity (Acute) Abscess of right lower leg (Acute) Open wound of left forearm due to cat bite (Acute) Subjective: Patient seen and examined. She has no complaints this morning. She only gets pain with her right lower extremity when she moves it. Review of systems otherwise negative. She is due for debridement by Dr. Reyes today. Labs and vitals reviewed. Vitals/I&O's: Vital Signs Temp Pulse Resp BP Pulse Ox 98.4 F 86 18 126/56 H 94 01/11/19 07:53 01/11/19 07:53 01/11/19 07:53 01/11/19 07:53 01/11/19 07:53 Oxygen Delivery Method Room Air Weight: 158 lb 11.2 oz Body Mass Index (BMI) 27.2 Intake and Output for Last 24 Hours 01/09/19 01/10/19 01/11/19 23:59 23:59 23:59 Intake Total 601 / 601 2064 Balance 601 / 601 2064 General: Alert, Oriented x3, Cooperative, No apparent distress HEENT: Atraumatic, PERRLA, EOMI, Normocephalic Oral: Moist Mucosa Neck: Supple, No JVD, Negative Carotid Bruits Lungs: Clear to auscultation, Normal air movement, No rhonchi, No wheeze, No rales Cardiovascular: Regular rate, Regular Rhythm, Normal S1, Normal S2, No murmurs Abdomen: Bowel Sounds Present, Soft, Non Tender, Non-Distended, No Hepato- splenomegaly Extremities: No edema, Capillary Refill Less than 3 Seconds Skin: - - RLE calf wrapped in clean bandage. Musculoskeletal: - - tenderness on palpation of calf area. Lymphatic: No Cervical, Supraclavicular, or Inguinal Adenopathy Neurological: Cranial nerves II-XII grossly intact, Neuro grossly intact Psych/Mental Status: Normal Affect, Appropriate, Alert and oriented to time, place, person, mood and affect Laboratory Results 01/10/19 12:02: WBC 6.9, RBC 3.51 L, Hgb 11.0 L, Hct 34.1 L, MCV 97.2, MCH 31.3, MCHC 32.3, RDW 12.6, RDW Differential 42.9, Plt Count 293, MPV 9.7, Immature Gran % (Auto) 0.100, Neut % (Auto) 85.9 H, Lymph % (Auto) 8.5 L, [place] % (Auto) 5.1, Eos % (Auto) 0.1, Baso % (Auto) 0.3, Absolute Neuts (auto) 5.9, Absolute Lymphs (auto) 0.58 L, Total Counted Not Reportable, Differential Comment COMMENT 01/10/19 12:02: Sodium 140, Potassium 3.5, Chloride 109 H, Carbon Dioxide 27.0, Anion Gap 4 L, BUN 7, Creatinine 0.47 L, Estim Creat Clear Calc 37.45, Est GFR (MDRD) Af Amer 163, Est GFR (MDRD) Non-Af 135, BUN/Creatinine Ratio 14.9, Glucose 96, Calcium 9.8 01/10/19 13:45: S.aureus Protein A PCR NEGATIVE, MRSA (PCR) Negative 01/11/19 06:08: WBC 5.4, RBC 3.06 L, Hgb 9.6 L, Hct 29.8 L, MCV 97.4, MCH 31.4, MCHC 32.2, RDW 13.0, RDW Differential 46.0 H, Plt Count 249, MPV 9.5, Immature Gran % (Auto) 0.600, Neut % (Auto) 79.9 H, Lymph % (Auto) 11.3 L, [place] % (Auto) 7.0, Eos % (Auto) 0.6, Baso % (Auto) 0.6, Absolute Neuts (auto) 4.3, Absolute Lymphs (auto) 0.61 L, Total Counted Not Reportable, ESR 7 01/11/19 06:08: Sodium 140, Potassium 3.5, Chloride 109 H, Carbon Dioxide 27.0, Anion Gap 4 L, BUN 5 L, Creatinine 0.45 L, Estim Creat Clear Calc 37.45, Est GFR (MDRD) Af Amer 171, Est GFR (MDRD) Non-Af 141, BUN/Creatinine Ratio 11.1, Glucose 95, Calcium 9.0, C-React Prot Ext Range 11.90 H, Prealbumin 16.8 L Diagnostic Data Tibia/Fibula X-Ray 01/10/19 12:20 IMPRESSION: Soft tissue laceration in the posterior mid calf. Electronically Signed: Diomedes Emilianasamsoraida, at 12:45 EDT , Service support , Lower Extremity CT 01/10/19 14:46 IMPRESSION: 1. Soft tissue swelling and gas consistent with bite wound. There is no organized collection. 2. Osteoarthrosis of the right knee. 3. Small knee effusion. Electronically Signed: Yasmeen Amaya MD at 17:22 EDT Tel , Service support , Current Medications Acetaminophen (Tylenol) 650 mg PO Q6H PRN PRN PRN Reason: Mild Pain (1-3)/Temp > 100.7 F Last Admin: 01/11/19 08:19 Dose: 650 mg Dextrose (D50w Syringe) 0 gm IV X1 PRN; Protocol PRN Reason: Hypoglycemia Enoxaparin Sodium (Lovenox) 40 mg SC DAILY@1000 DIMAS Last Admin: 01/11/19 07:19 Dose: Not Given Glucagon () 1 mg IM .X1 PRN PRN Reason: Hypoglycemia Sodium Chloride () 1,000 mls @ 100 mls/hr IV .Q10H [facility] Last Admin: 01/10/19 22:41 Dose: 100 mls/hr Clindamycin Phosphate 900 mg/ (Dextrose) 106 mls @ 75 mls/hr IV Q8 [facility] Last Admin: 01/11/19 05:41 Dose: 75 mls/hr Levofloxacin (Levaquin Iv) 750 mg in 150 mls @ 100 mls/hr IV Q48 [facility] Last Admin: 01/10/19 17:28 Dose: 100 mls/hr Ondansetron HCl (Zofran) 4 mg IV Q6H PRN PRN PRN Reason: NAUSEA Last Admin: 01/10/19 18:42 Dose: 4 mg Oxycodone HCl (Oxyir) 5 mg PO Q4H PRN PRN PRN Reason: Moderate Pain (4-6/10) Pantoprazole Sodium (Protonix) 20 mg PO DAILY [facility] Last Admin: 01/11/19 07:48 Dose: 20 mg Medical Necessity - Tobacco Use Smoking Status: Never smoker Assessment/Plan All Active Problems Open bite of right lower leg (Acute) Cat bite (Acute) Cat bite involving extremity (Acute) Abscess of right lower leg (Acute) Open wound of left forearm due to cat bite (Acute) 83 y/o female admitted with redness and swelling of lower extremity 1. Cellulitis of the RLE due to cat bite * currently on IV clindamycin and IV levaquin * CT of hte RLE showed soft tissue welling and gas consistent with bite wound, with no organised colection, osteoarthrosis of the right knee and small knee effusion. * for debridement by plastic surgery today * duplex of RLE pending. * blood cultures pending * DVT prophylaxis: lovenox Code Visit Inpatient E&M: 29723 Subs Hosp L3
[2019-01-11] MEDS: 0.9% Normal Saline 1,000 ML 100 ML IV ×2 (10:11→14:58)
--- NOTE | 2019-01-11 10:15 | NURSING ---
Home VAC form completed. Will just need to the fax the signed script and change the home health agency if needed. will need await for approval. Once approved, patient will need to sign the proof of delivery form and switched to the home VAC prior to being discharged home. there is a possibility of discharge home this weekend with home health for VAC changes.
--- NOTE | 2019-01-11 10:47 | CASEMGMT ---
Addendum entered by Misty Malin 01/11/19 14:52: [facility] was called to confirm acceptance. [facility] is able to accept the patient. Patient is currently at surgery. Original Note: DANII MORGAN received update that patient will need HHC at discharge for wound vac care. DANII MORGAN in to discuss need for HHC with patient. [facility] and would like to use them again. DANII MORGAN called [facility] and referral sent. CM will continue to follow this patient and plan for a safe discharge.
--- NOTE | 2019-01-11 11:53 | NURSING ---
CALLED REPORT TO DEBBIE IN AC AT THIS TIME.
--- NOTE | 2019-01-11 12:45 | SOF_PTH ---
PATIENT: YAS ALMARAZ LOC: MS3 U#:[id number] AGE/SX: 83/F ROOM: [facility] RE01/10/[address]: Dr. Daja Del Castillo MD : [id number] BED: 1 DIS: 01/13/2019 SPEC #: [id number] RECD: 01/15/19 09:32 STATUS: KAMALA VERONICA #: [id number] KAYLYN: 01/11/19 12:[address]: Lakhwinder Davis DEPT: SURGICAL PATHOLOGY RECD BY: Vivek Stuart ENTERED: 01/15/19 12:15 SP TYPE: SOFT TISS OTHR DR: MD Dr. Daja Herndon MD Tissues: Right leg Procedures: Surgery Specimen Level IV HEADER OPERATION: Incision and drainage cat bite, infected, posterior leg PRE-OP DIAGNOSIS: Cat bite involving extremity; abscess of right lower leg TISSUE SUBMITTED: Infected soft tissue right posterior leg MICROSCOPIC DIAGNOSIS Right posterior leg, infected soft tissue, incision and drainage: Skin with dermal perivascular lymphohistiocytic inflammation, subcutaneous panniculitis, bacterial aggregates and subcutaneous abscess formation. CE:jing 01/16/19 MICROSCOPIC DESCRIPTION Slides are reviewed. GROSS DESCRIPTION Received in fixative is one container labeled with the patient's name and designated soft tissue right posterior leg. The specimen consists of two discoid fragments of skin with attached fibrofatty tissue. The smaller fragment measures 4.5 x 4 x 1.3 cm and the largest fragment measures 5.3 x 5 x 2 cm. Serial sections do not reveal mass lesions. Rigging Man sections are submitted in three cassettes as follows: 1 - smaller fragment, 2 & 3 - larger fragment. / AM:jing 01/15/19 TC:2 [facility]: [id number]
--- NOTE | 2019-01-11 13:40 | OP.PCM_ITS ---
Report of Operation Date of Procedure: 01/11/19 Pre-Operative Diagnosis: 1. Infected cat bite wound right posterior leg. 2. Infected cat bite wound right proximal lateral leg. 3. Bitten by cat. Post-Operative Diagnosis: 1. Infected necrotizing cat bite wound abscess right posterior leg. 2. Infected necrotizing cat bite wound abscess right proximal lateral leg. 3. Bitten by cat. Surgery/Procedure Performed:: 1. Surgical preparation right posterior leg with incision and drainage and excisonal debridement necrotizing cat bite wound infection abscess (36 cm2). 2. Surgical preparation right proximal lateral leg with incision and drainage and excisional debridement necrotizing cat bite wound infection abscess (24 cm2). Description of Surgical Findings:: The patient is a 83 year old F who was bitten by her cat of 10 years 6 days ago. She sustained wounds to left volar forearm and right posterior leg. She started developing pain and redness and swelling. She went to the urgent care center who placed her on Doxycycline. Her symptomatology worsened and a few days later her PCP sent her to the [facility]. His WBC was 6.9. He was given Zosyn. After admission, he was started on Cleocin. She denied fever. I was asked to evaluate this patient for surgical options for treatment. Patient was informed of the risks and complications of the procedure including alternatives to surgery. These were discussed with the patient personally. Patient voices understanding and wishes to proceed. Size of defect right posterior leg - 6 x 6 x 2 cm. Size of defect right proximal lateral leg - 6 x 4 x 1.5 cm. eating disorder specialist: None Type of Anesthesia:: General Specimen's removed: Infected cat bite wound abscesses right posterior leg and proximal lateral leg to Pathology and Microbiology. Drains: None. Estimated Blood Loss (mL): 50 ml. Description of Procedure: Patient was taken to OR in supine position and was placed under general anesthesia. The right leg was prepped and draped in the usual fashion. SCD was placed on the left leg for DVT prophylaxis. Perioperative antibiotics were given intravenously. Using xylocaine with epinephrine, the cat bite wounds right posterior leg and right proximal lateral leg were infiltrated. After waiting 5 minutes for the anesthetic to take effect, I proceeded with incision and drainage of these infected cat bite wounds into the subcutaneous tissue. Some pus was seen. Extensive fat necrosis was seen and extended to the muscular fascia. The underlying muscle and fascia appeared viable without evidence of infection. The necrotizing soft tissue was excised and debrided. Tissue from both infected cat bite wound abscesses was sent together to Pathology for analysis to rule out carcinoma and to Microbiology for culture. A positive culture will necessitate antibiotic therapy. The wounds were irrigated with saline. Hemostasis was obtained with electrocautery. The size of the wounds after the incision and drainage and excisional debridement were 6 x 6 x 2 cm for the right posterior leg and 6 x 4 x 1.5 cm for the right proximal lateral leg. The wounds were dressed with Mepitel nonadherent dressing followed by Kerlix gauze with Betadine followed by dry Kerlix gauze and ABD pads followed by an BERTIN wrap for compression. Patient tolerated the procedure well and was sent to PACU in satisfactory condition. Patient will be sent upstairs for continued postop care. The VAC will be applied tomorrow. Grafts/Implants Used: None. - Complications None. - Admit VTE Documentation VTE Present on Admission: No VTE Mechan Device Prophylaxis: SCD's VTE Pharm Prophylaxis ordered?: No Code Visit Surgery Charges CPT - 62293 ICD-10 - W55.01xA, S81.851A, L02.415, M79.89 63056 L02.415, M79.89, W55.01xA, S81.851A [id number] L02.415, M79.89, W55.01xA, S81.851A
--- NOTE | 2019-01-11 14:57 | NURSING ---
Home VAC approved and is in patient room to be applied tomorrow. Proof of Delivery form will need to be signed by the patient tomorrow and faxed to [facility]. DANII Fairbanks aware. CATHY Jay has home health set up with [facility]. patient's daughter is aware.
[2019-01-11] MEDS: oxyCODONE 5 MG Tablet PO ×2 (15:11→19:54)
[2019-01-11] MEDS: diazePAM 5 MG Tablet PO ×2 (16:45→21:50)
[2019-01-12] MEDS: oxyCODONE 5 MG Tablet PO ×4 (00:42→22:31)
[2019-01-12 00:45] VITALS: BP 112/62; PULSE 75; RESP 16; TEMP 37.3; O2SAT 93
[2019-01-12] MEDS: 0.9% Normal Saline 1,000 ML 100 ML IV ×2 (03:48→17:30)
[2019-01-12] MEDS: Acetaminophen 325 MG Tablet 650 MG PO ×3 (05:34→22:32)
[2019-01-12 05:45] VITALS: BP 131/63; PULSE 79; RESP 18; TEMP 36.8; O2SAT 94
[2019-01-12 07:11] LABS: Absolute Lymphocyte Count 0.85 X10^3/ul (0.83-4.51); Basophil# 0.03 X10^3/uL; Basophil% 0.7 % (0-1); Eosinophil# 0.05 X10^3/uL; Eosinophils% 1.1 % (0-5); Hematocrit 28.9 % (37-47); Hemoglobin 9.2 g/dl (12.0-15.0); Lymphocyte # 0.85 X10^3/ul (4.0); Lymphocyte % 19.5 % (19-41); Mean Corp Hgb Conc 31.8 g/gl (32-36); Mean Corpuscular Hgb 31.1 pg (27.0-32.0); Mean Corpuscular Volume 97.6 fL (81-99); Mean Platelet Vol. 9.4 fl (6.2-12.0); Monocyte# 0.41 X10^3/uL; Monocyte% 9.4 % (0-10); Neutrophil % 68.6 % (47-70); Platelet Count 230 K/mm3 (150-450); RBC Distribution Width CV 13.2 % (11.6-14.6); Red Blood Count 2.96 M/mm3 (4.2-5.4); White Blood Count 4.4 K/mm3 (4.4-11.0)
[2019-01-12 07:12] LABS: POSITIVE COUNT NO; POSITIVE DIFFERENTIAL NO; POSITIVE MORPHOLOGY NO
[2019-01-12 07:28] LABS: Anion Gap 6 (5-15); BUN 5 mg/dL (7-18); BUN/Creat Ratio 9.5 RATIO (10-20); Calcium,Total 8.8 mg/dL (8.5-10.1); Chloride 110 mmol/L (98-107); Creatinine, Serum 0.52 mg/dL (0.55-1.02); EST Glomerular Filtration Rate 119 mL/min (>60); Est Glom Filt Rate - Afr Amer 144 mL/min (>60); Estimated Creatinine Clearance 37.45 ml/min; Glucose 93 mg/dL (74-106); Potassium 3.3 mmol/L (3.5-5.1); Sodium Level 143 mmol/L (136-145)
[2019-01-12] MEDS: diazePAM 5 MG Tablet PO ×3 (09:14→19:31)
[2019-01-12] MEDS: Enoxaparin 40 MG/0.4 ML Syringe SC (09:14)
[2019-01-12] MEDS: Pantoprazole Sodium 20 MG Tablet PO (09:14)
[2019-01-12] MEDS: levoFLOXacin IV 750 MG/150 ML BAG 100 MG IV (09:14)
[2019-01-12 09:15] VITALS: PULSE 84
--- NOTE | 2019-01-12 10:01 | PCM.PN.HOSP ---
Patient Problems: Active and Suspected Problems Open bite of right lower leg (Acute) infected cat bite wounds right posterior leg Cat bite (Acute) Cat bite involving extremity (Acute) Abscess of right lower leg (Acute) Open wound of left forearm due to cat bite (Acute) Subjective: Patient seen and examined. She had debridement done yesterday. Today is POD 1. She says pain is well controlled. She denies any fever, chills, cough, chest pain, palpitations, SOB, diarrhea or vomiting. Review of systems is otherwise negative. Labs and vitals reviewed. She is to have wound vac placed over wound today Vitals/I&O's: Vital Signs Temp Pulse Resp BP Pulse Ox 98.3 F 79 18 131/63 H 94 01/12/19 05:45 01/12/19 05:45 01/12/19 05:45 01/12/19 05:45 01/12/19 05:45 Oxygen Flow Rate (L/min) 1 Oxygen Delivery Method Room Air Weight: 158 lb 11.2 oz Body Mass Index (BMI) 27.2 Intake and Output for Last 24 Hours 01/10/19 01/11/19 01/12/19 23:59 23:59 23:59 Intake Total 601 / 601 5399 / 5399 818 / 818 Output Total 450 / 450 Balance 601 / 601 5399 / 5399 368 / 368 General: Alert, Oriented x3, Cooperative, No apparent distress HEENT: Atraumatic, PERRLA, EOMI, Normocephalic Oral: Moist Mucosa Neck: Supple, No JVD, Negative Carotid Bruits Lungs: Clear to auscultation, Normal air movement, No rhonchi, No wheeze, No rales Cardiovascular: Regular rate, Regular Rhythm, Normal S1, Normal S2, No murmurs Abdomen: Bowel Sounds Present, Soft, Non Tender, Non-Distended, No Hepato-splenomegaly Extremities: No edema, Capillary Refill Less than 3 Seconds Skin: - -RLE wrapped in clean bandage. Musculoskeletal: - - tenderness on palpation of calf area. Lymphatic: No Cervical, Supraclavicular, or Inguinal Adenopathy Neurological: Cranial nerves II-XII grossly intact, Neuro grossly intact Psych/Mental Status: Normal Affect, Appropriate, Alert and oriented to time, place, person, mood and affect Microbiology Past 72 Hours 01/10/19 13:45 Wound - Leg, Right Gram Stain - Final 01/10/19 13:45 Wound - Leg, Right Wound Culture - Final Pasturella species 01/10/19 13:45 Wound - Leg, Right Anaerobic Culture - Preliminary Checking for anaerobes, further studies to follow. 01/11/19 13:52 Tissue - Other Gram Stain - Final Laboratory Results 01/12/19 06:31: WBC 4.4, RBC 2.96 L, Hgb 9.2 L, Hct 28.9 L, MCV 97.6, MCH 31.1, MCHC 31.8 L, RDW 13.2, RDW Differential 47.0 H, Plt Count 230, MPV 9.4, Immature Gran % (Auto) 0.700, Neut % (Auto) 68.6, Lymph % (Auto) 19.5, [place] % (Auto) 9.4, Eos % (Auto) 1.1, Baso % (Auto) 0.7, Absolute Neuts (auto) 3.0, Absolute Lymphs (auto) 0.85, Total Counted Not Reportable 01/12/19 06:31: Sodium 143, Potassium 3.3 L, Chloride 110 H, Carbon Dioxide 27.0, Anion Gap 6, BUN 5 L, Creatinine 0.52 L, Estim Creat Clear Calc 37.45, Est GFR (MDRD) Af Amer 144, Est GFR (MDRD) Non-Af 119, BUN/Creatinine Ratio 9.5 L, Glucose 93, Calcium 8.8 Current Medications Acetaminophen (Tylenol) 650 mg PO Q6H PRN PRN PRN Reason: Mild Pain (1-3)/Temp > 100.7 F Last Admin: 01/12/19 05:34 Dose: 650 mg Dextrose (D50w Syringe) 0 gm IV X1 PRN; Protocol PRN Reason: Hypoglycemia Diazepam (Valium) 5 mg PO 4X/DAY [facility] Last Admin: 01/12/19 09:14 Dose: 5 mg Enoxaparin Sodium (Lovenox) 40 mg SC DAILY@1000 DIMAS Last Admin: 01/12/19 09:14 Dose: 40 mg Glucagon () 1 mg IM .X1 PRN PRN Reason: Hypoglycemia Hydromorphone HCl (Dilaudid Inj) 1 mg IV Q3H PRN PRN PRN Reason: SEVERE PAIN (6-10/10) Sodium Chloride () 1,000 mls @ 100 mls/hr IV .Q10H [facility] Last Admin: 01/12/19 03:48 Dose: 100 mls/hr Clindamycin Phosphate 900 mg/ (Dextrose) 106 mls @ 75 mls/hr IV Q8 [facility] Last Admin: 01/12/19 05:35 Dose: 75 mls/hr Levofloxacin (Levaquin Iv) 750 mg in 150 mls @ 100 mls/hr IV Q48 [facility] Last Admin: 01/12/19 09:14 Dose: 100 mls/hr Ondansetron HCl (Zofran) 4 mg IV Q6H PRN PRN PRN Reason: NAUSEA Last Admin: 01/10/19 18:42 Dose: 4 mg Oxycodone HCl (Oxyir) 5 mg PO Q4H PRN PRN PRN Reason: Moderate Pain (4-6/10) Last Admin: 01/12/19 05:35 Dose: 5 mg Pantoprazole Sodium (Protonix) 20 mg PO DAILY [facility] Last Admin: 01/12/19 09:14 Dose: 20 mg Sodium Chloride () 5 - 15 ml IV UD PRN PRN Reason: SALINE FLUSH Medical Necessity - Tobacco Use Smoking Status: Never smoker Assessment/Plan All Active Problems Open bite of right lower leg (Acute) Cat bite (Acute) Cat bite involving extremity (Acute) Abscess of right lower leg (Acute) Open wound of left forearm due to cat bite (Acute) 83 y/o female admitted with redness and swelling of lower extremity 1. Cellulitis of the RLE due to cat bite s/p debridement today is POD 1 currently on IV clindamycin and IV levaquin CT of hte RLE showed soft tissue welling and gas consistent with bite wound, with no organised colection, osteoarthrosis of the right knee and small knee effusion. for debridement by plastic surgery today duplex of RLE was negative for any blood clots blood cultures pending wound cultured Pasteurella species; per discussion with microbiology, antibiotic sensitivity testing is being repeated as some of the medication terminated early during first sensitivity testing 2. Hypokalemia: K is 3.3.Will replace and monitor DVT prophylaxis: lovenox Code Visit Inpatient E&M: 67478 Subs Hosp L2
--- NOTE | 2019-01-12 10:09 | PN_ITS ---
Patient Problems: Active and Suspected Problems Open bite of right lower leg (Acute) infected cat bite wounds right posterior leg Cat bite (Acute) Cat bite involving extremity (Acute) Abscess of right lower leg (Acute) Open wound of left forearm due to cat bite (Acute) Subjective: Patient seen and examined. She had debridement done yesterday. Today is POD 1. She says pain is well controlled. She denies any fever, chills, cough, chest pain, palpitations, SOB, diarrhea or vomiting. Review of systems is otherwise negative. Labs and vitals reviewed. She is to have wound vac placed over wound today Vitals/I&O's: Vital Signs Temp Pulse Resp BP Pulse Ox 98.3 F 79 18 131/63 H 94 01/12/19 05:45 01/12/19 05:45 01/12/19 05:45 01/12/19 05:45 01/12/19 05:45 Oxygen Flow Rate (L/min) 1 Oxygen Delivery Method Room Air Weight: 158 lb 11.2 oz Body Mass Index (BMI) 27.2 Intake and Output for Last 24 Hours 01/10/19 01/11/19 01/12/19 23:59 23:59 23:59 Intake Total 601 / 601 5399 / 5399 818 / 818 Output Total 450 / 450 Balance 601 / 601 5399 / 5399 368 / 368 General: Alert, Oriented x3, Cooperative, No apparent distress HEENT: Atraumatic, PERRLA, EOMI, Normocephalic Oral: Moist Mucosa Neck: Supple, No JVD, Negative Carotid Bruits Lungs: Clear to auscultation, Normal air movement, No rhonchi, No wheeze, No rales Cardiovascular: Regular rate, Regular Rhythm, Normal S1, Normal S2, No murmurs Abdomen: Bowel Sounds Present, Soft, Non Tender, Non-Distended, No Hepato-splenomegaly Extremities: No edema, Capillary Refill Less than 3 Seconds Skin: - -RLE wrapped in clean bandage. Musculoskeletal: - - tenderness on palpation of calf area. Lymphatic: No Cervical, Supraclavicular, or Inguinal Adenopathy Neurological: Cranial nerves II-XII grossly intact, Neuro grossly intact Psych/Mental Status: Normal Affect, Appropriate, Alert and oriented to time, place, person, mood and affect Microbiology Past 72 Hours 01/10/19 13:45 Wound - Leg, Right Gram Stain - Final 01/10/19 13:45 Wound - Leg, Right Wound Culture - Final Pasturella species 01/10/19 13:45 Wound - Leg, Right Anaerobic Culture - Preliminary Checking for anaerobes, further studies to follow. 01/11/19 13:52 Tissue - Other Gram Stain - Final Laboratory Results 01/12/19 06:31: WBC 4.4, RBC 2.96 L, Hgb 9.2 L, Hct 28.9 L, MCV 97.6, MCH 31.1, MCHC 31.8 L, RDW 13.2, RDW Differential 47.0 H, Plt Count 230, MPV 9.4, Immature Gran % (Auto) 0.700, Neut % (Auto) 68.6, Lymph % (Auto) 19.5, [place] % (Auto) 9.4, Eos % (Auto) 1.1, Baso % (Auto) 0.7, Absolute Neuts (auto) 3.0, Absolute Lymphs (auto) 0.85, Total Counted Not Reportable 01/12/19 06:31: Sodium 143, Potassium 3.3 L, Chloride 110 H, Carbon Dioxide 27.0, Anion Gap 6, BUN 5 L, Creatinine 0.52 L, Estim Creat Clear Calc 37.45, Est GFR (MDRD) Af Amer 144, Est GFR (MDRD) Non-Af 119, BUN/Creatinine Ratio 9.5 L, Glucose 93, Calcium 8.8 Current Medications Acetaminophen (Tylenol) 650 mg PO Q6H PRN PRN PRN Reason: Mild Pain (1-3)/Temp > 100.7 F Last Admin: 01/12/19 05:34 Dose: 650 mg Dextrose (D50w Syringe) 0 gm IV X1 PRN; Protocol PRN Reason: Hypoglycemia Diazepam (Valium) 5 mg PO 4X/DAY [facility] Last Admin: 01/12/19 09:14 Dose: 5 mg Enoxaparin Sodium (Lovenox) 40 mg SC DAILY@1000 DIMAS Last Admin: 01/12/19 09:14 Dose: 40 mg Glucagon () 1 mg IM .X1 PRN PRN Reason: Hypoglycemia Hydromorphone HCl (Dilaudid Inj) 1 mg IV Q3H PRN PRN PRN Reason: SEVERE PAIN (6-10/10) Sodium Chloride () 1,000 mls @ 100 mls/hr IV .Q10H [facility] Last Admin: 01/12/19 03:48 Dose: 100 mls/hr Clindamycin Phosphate 900 mg/ (Dextrose) 106 mls @ 75 mls/hr IV Q8 [facility] Last Admin: 01/12/19 05:35 Dose: 75 mls/hr Levofloxacin (Levaquin Iv) 750 mg in 150 mls @ 100 mls/hr IV Q48 [facility] Last Admin: 01/12/19 09:14 Dose: 100 mls/hr Ondansetron HCl (Zofran) 4 mg IV Q6H PRN PRN PRN Reason: NAUSEA Last Admin: 01/10/19 18:42 Dose: 4 mg Oxycodone HCl (Oxyir) 5 mg PO Q4H PRN PRN PRN Reason: Moderate Pain (4-6/10) Last Admin: 01/12/19 05:35 Dose: 5 mg Pantoprazole Sodium (Protonix) 20 mg PO DAILY [facility] Last Admin: 01/12/19 09:14 Dose: 20 mg Sodium Chloride () 5 - 15 ml IV UD PRN PRN Reason: SALINE FLUSH Medical Necessity - Tobacco Use Smoking Status: Never smoker Assessment/Plan All Active Problems Open bite of right lower leg (Acute) Cat bite (Acute) Cat bite involving extremity (Acute) Abscess of right lower leg (Acute) Open wound of left forearm due to cat bite (Acute) 83 y/o female admitted with redness and swelling of lower extremity 1. Cellulitis of the RLE due to cat bite s/p debridement * today is POD 1 * currently on IV clindamycin and IV levaquin * CT of hte RLE showed soft tissue welling and gas consistent with bite wound, with no organised colection, osteoarthrosis of the right knee and small knee effusion. * for debridement by plastic surgery today * duplex of RLE was negative for any blood clots * blood cultures pending * wound cultured Pasteurella species; per discussion with microbiology, antibiotic sensitivity testing is being repeated as some of the medication terminated early during first sensitivity testing * 2. Hypokalemia: K is 3.3.Will replace and monitor DVT prophylaxis: lovenox Code Visit Inpatient E&M: 07199 [facility] Hosp L2
--- NOTE | 2019-01-12 11:20 | PCM.PN.SRG ---
Patient Problems: Active and Suspected Problems Open bite of right lower leg (Acute) infected cat bite wounds right posterior leg Cat bite (Acute) Cat bite involving extremity (Acute) Abscess of right lower leg (Acute) Open wound of left forearm due to cat bite (Acute) Subjective: Postop #1 Patient is resting comfortably. VAC to be applied today. - Physical Exam General: Alert, Oriented x3 HEENT: PERRLA, EOMI Oral: Moist Mucosa Neck: Supple Abdomen: Soft, Non-Distended Skin: Ulcer/ Wound - operative dressing is dry. will apply vac today. If oozing is seen, will continue a saline compression dressimg and apply the vac tomorrow. Neurological: Cranial nerves II-XII grossly intact Psych/Mental Status: Normal Affect, Appropriate Vital Signs Temp Pulse Resp BP Pulse Ox 98.3 F 84 18 131/63 H 94 01/12/19 05:45 01/12/19 09:15 01/12/19 05:45 01/12/19 05:45 01/12/19 05:45 Oxygen Flow Rate (L/min) 1 Oxygen Delivery Method Room Air Weight: 158 lb 11.2 oz Body Mass Index (BMI) 27.2 Intake and Output for Last 24 Hours 01/10/19 01/11/19 01/12/19 23:59 23:59 23:59 Intake Total 601 / 601 5399 / 5399 818 / 818 Output Total 450 / 450 Balance 601 / 601 5399 / 5399 368 / 368 Microbiology Past 72 Hours 01/10/19 13:45 Gram Stain - Final Wound - Leg, Right Wound Culture - Final Pasturella species Anaerobic Culture - Preliminary Checking for anaerobes, further studies to follow. 01/11/19 13:52 Gram Stain - Final Tissue - Other Laboratory Tests Past 24 Hrs 01/12/19 01/12/19 06:31 06:31 WBC 4.4 RBC 2.96 L Hgb 9.2 L Hct 28.9 L MCV 97.6 MCH 31.1 MCHC 31.8 L RDW 13.2 RDW Differential 47.0 H Plt Count 230 MPV 9.4 Immature Gran % (Auto) 0.700 Neut % (Auto) 68.6 Lymph % (Auto) 19.5 [place] % (Auto) 9.4 Eos % (Auto) 1.1 Baso % (Auto) 0.7 Absolute Neuts (auto) 3.0 Absolute Lymphs (auto) 0.85 Total Counted Not Reportable Sodium 143 Potassium 3.3 L Chloride 110 H Carbon Dioxide 27.0 Anion Gap 6 BUN 5 L Creatinine 0.52 L Estim Creat Clear Calc 37.45 Est GFR (MDRD) Af Amer 144 Est GFR (MDRD) Non-Af 119 BUN/Creatinine Ratio 9.5 L Glucose 93 Calcium 8.8 Diagnostic Data Tibia/Fibula X-Ray 01/10/19 12:20 IMPRESSION: Soft tissue laceration in the posterior mid calf. Electronically Signed: Diomedes Peres, at 12:45 EDT , Service support , Lower Extremity CT 01/10/19 14:46 IMPRESSION: 1. Soft tissue swelling and gas consistent with bite wound. There is no organized collection. 2. Osteoarthrosis of the right knee. 3. Small knee effusion. Electronically Signed: Yasmeen Amaya MD at 17:22 EDT Tel , Service support , Medical Necessity - Tobacco Use Smoking Status: Never smoker Assessment/Plan All Active Problems Open bite of right lower leg (Acute) Cat bite (Acute) Cat bite involving extremity (Acute) Abscess of right lower leg (Acute) Open wound of left forearm due to cat bite (Acute) 1. Infected necrotizing cat bite wound abscesses right posterior leg and right proximal lateral leg. 2. Nontender cat bite abrasion mid volar radial aspect left forearm. 3. Bitten by cat. 4. s/p surgical preparation right posterior leg with incision and drainage and excisonal debridement necrotizing cat bite wound infection abscess (36 cm2) and surgical preparation right proximal lateral leg with incision and drainage and excisional debridement necrotizing cat bite wound infection abscess (24 cm2). Continue Cleocin and Levaquin. Preop wound culture showed Pasteurella. Will look at sensitivities. Usually po Augmentin or Levaquin will treat. If not sensitive, then would need IV antibiotics and the placement of a PICC line. Operative dressing is dry. Will apply vac today. If oozing is seen, will continue a saline compression dressing and apply the vac tomorrow. Home Health to assist with the vac dressing changes three times per week at 150 mmHg continuous suction. Prealbumin was 16.8. Encourage nutritional supplementation with protein to help the healing process. After discharge followup at [facility] Center in 2 weeks. Call [phone] for appt. If there is a plateau in the healing of the wounds, can proceed with delayed closure with skin grafting. Keep right leg elevated when sitting. It is ok to ambulate. Minimize standing. Patient can place a plastic bag over right leg when showering. Wrote scripts for Percocet for pain (60 tabs) and for Valium for spasm (30 tabs). Wrote scripts for Phenergan for nausea (30 tabs) and a refill and for Colace for constipation (60 tabs). Wrote script for Acidophilus Probiotic to minimize colitis (60) and a refill.
--- NOTE | 2019-01-12 11:24 | PN.SURG_ITS ---
Patient Problems: Active and Suspected Problems Open bite of right lower leg (Acute) infected cat bite wounds right posterior leg Cat bite (Acute) Cat bite involving extremity (Acute) Abscess of right lower leg (Acute) Open wound of left forearm due to cat bite (Acute) Subjective: Postop #1 Patient is resting comfortably. VAC to be applied today. - Physical Exam General: Alert, Oriented x3 HEENT: PERRLA, EOMI Oral: Moist Mucosa Neck: Supple Abdomen: Soft, Non-Distended Skin: Ulcer/ Wound - operative dressing is dry. will apply vac today. If oozing is seen, will continue a saline compression dressimg and apply the vac tomorrow. Neurological: Cranial nerves II-XII grossly intact Psych/Mental Status: Normal Affect, Appropriate Vital Signs Temp Pulse Resp BP Pulse Ox 98.3 F 84 18 131/63 H 94 01/12/19 05:45 01/12/19 09:15 01/12/19 05:45 01/12/19 05:45 01/12/19 05:45 Oxygen Flow Rate (L/min) 1 Oxygen Delivery Method Room Air Weight: 158 lb 11.2 oz Body Mass Index (BMI) 27.2 Intake and Output for Last 24 Hours 01/10/19 01/11/19 01/12/19 23:59 23:59 23:59 Intake Total 601 / 601 5399 / 5399 818 / 818 Output Total 450 / 450 Balance 601 / 601 5399 / 5399 368 / 368 Microbiology Past 72 Hours 01/10/19 13:45 Gram Stain - Final Wound - Leg, Right Wound Culture - Final Pasturella species Anaerobic Culture - Preliminary Checking for anaerobes, further studies to follow. 01/11/19 13:52 Gram Stain - Final Tissue - Other Laboratory Tests Past 24 Hrs 01/12/19 01/12/19 06:31 06:31 WBC 4.4 RBC 2.96 L Hgb 9.2 L Hct 28.9 L MCV 97.6 MCH 31.1 MCHC 31.8 L RDW 13.2 RDW Differential 47.0 H Plt Count 230 MPV 9.4 Immature Gran % (Auto) 0.700 Neut % (Auto) 68.6 Lymph % (Auto) 19.5 [place] % (Auto) 9.4 Eos % (Auto) 1.1 Baso % (Auto) 0.7 Absolute Neuts (auto) 3.0 Absolute Lymphs (auto) 0.85 Total Counted Not Reportable Sodium 143 Potassium 3.3 L Chloride 110 H Carbon Dioxide 27.0 Anion Gap 6 BUN 5 L Creatinine 0.52 L Estim Creat Clear Calc 37.45 Est GFR (MDRD) Af Amer 144 Est GFR (MDRD) Non-Af 119 BUN/Creatinine Ratio 9.5 L Glucose 93 Calcium 8.8 Diagnostic Data Tibia/Fibula X-Ray 01/10/19 12:20 IMPRESSION: Soft tissue laceration in the posterior mid calf. Electronically Signed: Diomedes Peres, at 12:45 EDT , Service support , Lower Extremity CT 01/10/19 14:46 IMPRESSION: 1. Soft tissue swelling and gas consistent with bite wound. There is no organized collection. 2. Osteoarthrosis of the right knee. 3. Small knee effusion. Electronically Signed: Yasmeen Amaya MD at 17:22 EDT Tel , Service support , Medical Necessity - Tobacco Use Smoking Status: Never smoker Assessment/Plan All Active Problems Open bite of right lower leg (Acute) Cat bite (Acute) Cat bite involving extremity (Acute) Abscess of right lower leg (Acute) Open wound of left forearm due to cat bite (Acute) 1. Infected necrotizing cat bite wound abscesses right posterior leg and right proximal lateral leg. 2. Nontender cat bite abrasion mid volar radial aspect left forearm. 3. Bitten by cat. 4. s/p surgical preparation right posterior leg with incision and drainage and excisonal debridement necrotizing cat bite wound infection abscess (36 cm2) and surgical preparation right proximal lateral leg with incision and drainage and excisional debridement necrotizing cat bite wound infection abscess (24 cm2). Continue Cleocin and Levaquin. Preop wound culture showed Pasteurella. Will look at sensitivities. Usually po Augmentin or Levaquin will treat. If not sensitive, then would need IV antibiotics and the placement of a PICC line. Operative dressing is dry. Will apply vac today. If oozing is seen, will continue a saline compression dressing and apply the vac tomorrow. Home Health to assist with the vac dressing changes three times per week at 150 mmHg continuous suction. Prealbumin was 16.8. Encourage nutritional supplementation with protein to help the healing process. After discharge followup at [facility] in 2 weeks. Call [phone] for appt. If there is a plateau in the healing of the wounds, can proceed with delayed closure with skin grafting. Keep right leg elevated when sitting. It is ok to ambulate. Minimize standing. Patient can place a plastic bag over right leg when showering. Wrote scripts for Percocet for pain (60 tabs) and for Valium for spasm (30 tabs). Wrote scripts for Phenergan for nausea (30 tabs) and a refill and for Colace for constipation (60 tabs). Wrote script for Acidophilus Probiotic to minimize colitis (60) and a refill.
[2019-01-12 12:48] VITALS: BP 143/73; PULSE 88; RESP 18; TEMP 37.2; O2SAT 93
[2019-01-12 15:36] VITALS: BP 153/64; PULSE 86; RESP 16; TEMP 36.9; O2SAT 95
[2019-01-12] MEDS: 0.9% NaCl Peripheral Flush Adult/Peds IV (15:36)
[2019-01-12] MEDS: HYDROmorphone 1 MG/ML Syringe IV (15:36)
[2019-01-12 22:26] VITALS: BP 155/79; PULSE 87; RESP 18; TEMP 37.4; O2SAT 96
--- NOTE | 2019-01-13 00:16 | NURSING ---
Wound vac set up sheet just given to this RN. Vac was placed at 1430 on 01/12/19. [facility] called just now. Confirmation #[id number].
[2019-01-13 02:39] VITALS: BP 134/81; PULSE 87; RESP 16; TEMP 37.1; O2SAT 95
[2019-01-13] MEDS: 0.9% Normal Saline 1,000 ML 100 ML IV (03:15)
[2019-01-13 06:02] LABS: Absolute Lymphocyte Count 0.85 X10^3/ul (0.83-4.51); Absolute Neutrophil Count 3.1 X10^3/uL (2.0-7.7); Basophil# 0.04 X10^3/uL; Basophil% 0.9 % (0-1); Eosinophil# 0.06 X10^3/uL; Eosinophils% 1.3 % (0-5); Hematocrit 33.1 % (37-47); Hemoglobin 10.5 g/dl (12.0-15.0); Lymphocyte # 0.85 X10^3/ul (4.0); Lymphocyte % 18.6 % (19-41); Mean Corp Hgb Conc 31.7 g/gl (32-36); Mean Corpuscular Hgb 30.8 pg (27.0-32.0); Mean Corpuscular Volume 97.1 fL (81-99); Mean Platelet Vol. 9.4 fl (6.2-12.0); Neutrophil # 3.06 X10^3/uL (2.7-7.7); Neutrophil % 67.1 % (47-70); Platelet Count 270 K/mm3 (150-450); RBC Distribution Width CV 12.8 % (11.6-14.6); Red Blood Count 3.41 M/mm3 (4.2-5.4); White Blood Count 4.6 K/mm3 (4.4-11.0)
[2019-01-13 06:13] LABS: POSITIVE COUNT NO; POSITIVE DIFFERENTIAL NO; POSITIVE MORPHOLOGY NO
[2019-01-13 06:24] LABS: Anion Gap 7 (5-15); BUN 3 mg/dL (7-18); BUN/Creat Ratio 5.5 RATIO (10-20); Calcium,Total 9.3 mg/dL (8.5-10.1); Chloride 110 mmol/L (98-107); Creatinine, Serum 0.55 mg/dL (0.55-1.02); EST Glomerular Filtration Rate 113 mL/min (>60); Est Glom Filt Rate - Afr Amer 137 mL/min (>60); Estimated Creatinine Clearance 37.45 ml/min; Glucose 101 mg/dL (74-106); Potassium 3.2 mmol/L (3.5-5.1); Sodium Level 144 mmol/L (136-145)
[2019-01-13 08:12] VITALS: BP 155/78; PULSE 93; RESP 18; TEMP 36.9; O2SAT 94
[2019-01-13] MEDS: oxyCODONE 5 MG Tablet PO ×2 (08:19→15:08)
[2019-01-13] MEDS: diazePAM 5 MG Tablet PO ×2 (08:19→13:48)
[2019-01-13] MEDS: Pantoprazole Sodium 20 MG Tablet PO (08:20)
[2019-01-13] MEDS: Enoxaparin 40 MG/0.4 ML Syringe SC (08:20)
[2019-01-13] MEDS: 0.9% NaCl Peripheral Flush Adult/Peds IV (11:40)
[2019-01-13] MEDS: HYDROmorphone 1 MG/ML Syringe IV (11:40)
--- NOTE | 2019-01-13 11:46 | PCM.DC ---
- Discharge Diagnoses Current Active Problems: Current Active and Chronic Problems Open bite of right lower leg (Acute) infected cat bite wounds right posterior leg Cat bite (Acute) You will use the following diet at home:: No restrictions Your food should be the consistency of: Regular Your liquids should be the consistency of: Regular/Thin Discharge Activity: Return to Normal Activity Weight Bearing Status: Weight bearing as tolerated Call your doctor if your incision/area has: Continuous Slow Oozing, Sudden Increased Bleeding, Increased Pain/ Swelling, Increased Redness, Foul Smelling Discharge, Swelling at the incision site Call your doctor if you observe: Fever of 101 or Higher, Calf discomfort, Uncontrolled pain Instructions: Animal Bites and Scratches, ED Bite Cat, Discharge Instructions for Cellulitis Additional Instructions: follow up at wound center ([id number]). Call center for appointment. Home health to change wound vac dressings 3x weekly at 150mmHg continuous suction Allergies/Adverse Reactions: Allergies azithromycin [From Zithromax] Adverse Reaction (Verified 01/10/19 11:15) Nausea cephalexin [From Keflex] Adverse Reaction (Verified 01/10/19 11:15) Nausea ciprofloxacin [From Cipro] Adverse Reaction (Verified 01/10/19 11:15) Nausea erythromycin base Adverse Reaction (Verified 01/10/19 11:15) Nausea sulfamethoxazole [From Bactrim] Adverse Reaction (Verified 01/10/19 11:15) Nausea trimethoprim [From Bactrim] Adverse Reaction (Verified 01/10/19 11:15) Nausea Medications to take at Discharge Omeprazole 20 mg PO DAILY 01/10/19 Diazepam [Valium] 5 mg PO 4X/DAY PRN PRN #30 tab 01/12/19 Docusate Sodium [Colace] 100 mg PO BID #60 cap 01/12/19 Lactobacillus Acidophilus/Fos [Acidophilus Probiotic Tablet] 1 ea PO BID #60 tab 01/12/19 Oxycodone HCl/Acetaminophen [Percocet 5/325] 1 - 2 tab PO 4X/DAY PRN PRN 7 Days #60 tab 01/12/19 proMETHazine tablet [Phenergan tablet] 25 mg PO 4X/DAY PRN PRN #30 tab 01/12/19 Amox/Clavulanate Tablet [Augmentin Tablet] 875 mg PO Q12H #28 tablet 01/13/19 The following prescriptions were given: Amox/Clavulanate Tablet [Augmentin Tablet] 875 mg PO Q12H #28 tablet Diazepam [Valium] 5 mg PO 4X/DAY PRN PRN #30 tab PRN Reason: Spasms Oxycodone HCl/Acetaminophen [Percocet 5/325] 1 - 2 tab PO 4X/DAY PRN PRN 7 Days #60 tab PRN Reason: Pain proMETHazine tablet [Phenergan tablet] 25 mg PO 4X/DAY PRN PRN #30 tab PRN Reason: Nausea Docusate Sodium [Colace] 100 mg PO BID #60 cap Lactobacillus Acidophilus/Fos [Acidophilus Probiotic Tablet] 1 ea PO BID #60 tab Primary Care Physician: Marifer Marquez [Primary Care Provider] - Please follow up with your Primary Care Physician in: one week Test Results: Test results from this visit will be discussed in further detail at your follow-up appointment, if applicable. Please Follow Up With: Lakhwinder Davis MD When: one week Please Follow Up With: Neel Haines MD When: 1-2 weeks Proposed Discharge Date: 01/13/19
--- NOTE | 2019-01-13 11:49 | DCINST_ITS ---
- Discharge Diagnoses Current Active Problems: Current Active and Chronic Problems Open bite of right lower leg (Acute) infected cat bite wounds right posterior leg Cat bite (Acute) You will use the following diet at home:: No restrictions Your food should be the consistency of: Regular Your liquids should be the consistency of: Regular/Thin Discharge Activity: Return to Normal Activity Weight Bearing Status: Weight bearing as tolerated Call your doctor if your incision/area has: Continuous Slow Oozing, Sudden Increased Bleeding, Increased Pain/ Swelling, Increased Redness, Foul Smelling Discharge, Swelling at the incision site Call your doctor if you observe: Fever of 101 or Higher, Calf discomfort, Uncontrolled pain Instructions: Animal Bites and Scratches, ED Bite Cat, Discharge Instructions for Cellulitis Additional Instructions: follow up at wound center ([id number]). Call center for appointment. Home health to change wound vac dressings 3x weekly at 150mmHg continuous suction Allergies/Adverse Reactions: Allergies azithromycin [From Zithromax] Adverse Reaction (Verified 01/10/19 11:15) Nausea cephalexin [From Keflex] Adverse Reaction (Verified 01/10/19 11:15) Nausea ciprofloxacin [From Cipro] Adverse Reaction (Verified 01/10/19 11:15) Nausea erythromycin base Adverse Reaction (Verified 01/10/19 11:15) Nausea sulfamethoxazole [From Bactrim] Adverse Reaction (Verified 01/10/19 11:15) Nausea trimethoprim [From Bactrim] Adverse Reaction (Verified 01/10/19 11:15) Nausea Medications to take at Discharge Omeprazole 20 mg PO DAILY 01/10/19 Diazepam [Valium] 5 mg PO 4X/DAY PRN PRN #30 tab 01/12/19 Docusate Sodium [Colace] 100 mg PO BID #60 cap 01/12/19 Lactobacillus Acidophilus/Fos [Acidophilus Probiotic Tablet] 1 ea PO BID #60 tab 01/12/19 Oxycodone HCl/Acetaminophen [Percocet 5/325] 1 - 2 tab PO 4X/DAY PRN PRN 7 Days #60 tab 01/12/19 proMETHazine tablet [Phenergan tablet] 25 mg PO 4X/DAY PRN PRN #30 tab 01/12/19 Amox/Clavulanate Tablet [Augmentin Tablet] 875 mg PO Q12H #28 tablet 01/13/19 The following prescriptions were given: Amox/Clavulanate Tablet [Augmentin Tablet] 875 mg PO Q12H #28 tablet Diazepam [Valium] 5 mg PO 4X/DAY PRN PRN #30 tab PRN Reason: Spasms Oxycodone HCl/Acetaminophen [Percocet 5/325] 1 - 2 tab PO 4X/DAY PRN PRN 7 Days #60 tab PRN Reason: Pain proMETHazine tablet [Phenergan tablet] 25 mg PO 4X/DAY PRN PRN #30 tab PRN Reason: Nausea Docusate Sodium [Colace] 100 mg PO BID #60 cap Lactobacillus Acidophilus/Fos [Acidophilus Probiotic Tablet] 1 ea PO BID #60 tab Primary Care Physician: Marifer Marquez [Primary Care Provider] - Please follow up with your Primary Care Physician in: one week Test Results: Test results from this visit will be discussed in further detail at your follow- up appointment, if applicable. Please Follow Up With: Lakhwinder Davis MD When: one week Please Follow Up With: Neel Haines MD When: 1-2 weeks Proposed Discharge Date: 01/13/19
--- NOTE | 2019-01-13 13:08 | DS.PCM_ITS ---
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 Electronically Signed: Diomedes Espositosoraida, at 12:45 EDT , Service support , Lower Extremity CT 01/10/19 14:46 IMPRESSION: 1. Soft tissue swelling and gas consistent with bite wound. There is no organized collection. 2. Osteoarthrosis of the right knee. 3. Small knee effusion. Electronically Signed: Yasmeen Amaya MD at 17:22 EDT Tel , Service support , Consultations 01/10/19 13:53 Consult: Onc/Wound/cdl b driver Routine Comment: Plastic surgery- Dr Davis Operations: - - incision and drainage and debridement of RLE necrotizing cat wound Summary of Care Provided: The patient is a 83 year old F with no significant past medical history. She was admitted through the ED on 01/10/2019. Patient states she was bitten by her cat on her right lower extremity 6 days ago on Monday. She subsequently noticed redness and discharge from the puncture wounds on her right calf. She went to the urgent care center and was prescribed doxycycline which she was compliant with. However redness and swelling did not resolve and worsened. She also went to her PCP who referred her to the wound care clinic today. Patient went to the wound care clinic where debridement was attempted but this was unsuccessful due to severe pain and was also noted that there was necrotic tissue extending to the calf muscles. She was therefore referred to the emergency room for debridement by plastic surgery orthopedic surgery. Patient does admit to a subjective feeling of fever and chills as well as at home but has been able to weight-bear on the leg. She has noticed discharge from the puncture wound site as well as increasing redness. Review of systems is otherwise negative. Vitals in the ED was stable and CBC showed no leukocytosis. X-ray of the right tibia and fibula showed soft tissue laceration in the posterior mid calf. She was started on IV Zosyn in the ED. She was admitted to be managed for cellulitis of the right lower extremity due to cat bite. She was started on IV clindamycin and Levaquin was subsequently added on by plastic surgery. Plastic surgery was consulted and she had debridement and I&D of the right lower extremity done on 01/11/2019. Blood cultures were negative after 48 hours and wound culture Pasteurella. Sensitivities to Pasteurella showed only 3 antibiotics that was tested against, all IV. This was discussed with microbiology who stated that antibiotic sensitivities terminated to other antibiotics and so they could not see whether Pasteurella was sensitive or resistant to other antibiotics. Situation was discussed with Dr. Haines of infectious disease who did not think the patient needed a PICC line for IV ant ibiotics as she had remained hemodynamically stable and afebrile and blood cultures were negative. Patient was therefore discharged on 01/13/2019 with a prescription for p.o. Augmentin 875 and a gram twice daily for 14 days. Patient had a wound VAC placed by plastic surgery it is to follow-up at the wound center with a week. She is to go home with home health care and wound VAC is to be changed 3 times weekly as per home health care and plastic surgery. She is also to follow-up with her primary care doctor and plastic surgery. Patient seen and examined prior to discharge. She complained of one episode of diarrhea. Pain was well controlled he denied any fever chills and palpitations or dizziness, chest pain, diarrhea vomiting. C. difficile checked on account of diarrhea she was on clindamycin was negative. Labs and vitals reviewed. Home medications reviewed and reconciled. o/e: Vital Signs Height 5 ft 4 in Weight: 158 lb 11.2 oz Weight in Pounds 158.7 lbs Pulse Ox 94 Temperature 98.5 F Pulse Rate 93 Respiratory Rate 18 Blood Pressure 155/78 Blood Pressure Position Semi-Fowlers General: Alert, Oriented x3, Cooperative, No apparent distress HEENT: Atraumatic, PERRLA, EOMI, Normocephalic Oral: Moist Mucosa Neck: Supple, No JVD, Negative Carotid Bruits Lungs: Clear to auscultation, Normal air movement, No rhonchi, No wheeze, No rales Cardiovascular: Regular rate, Regular Rhythm, Normal S1, Normal S2, No murmurs Abdomen: Bowel Sounds Present, Soft, Non Tender, Non-Distended, No Hepato- splenomegaly Extremities: No edema, Capillary Refill Less than 3 Seconds Skin: - -RLE wrapped in clean bandage. Musculoskeletal: - - RLE dressed in clean bandage;dressing intact Lymphatic: No Cervical, Supraclavicular, or Inguinal Adenopathy Neurological: Cranial nerves II-XII grossly intact, Neuro grossly intact Psych/Mental Status: Normal Affect, Appropriate, Alert and oriented to time, place, person, mood and affect Plan as above. - Physical Exam Vital Signs Temp Pulse Resp BP Pulse Ox 98.5 F 93 18 155/78 H 94 01/13/19 08:12 01/13/19 08:12 01/13/19 08:12 01/13/19 08:12 01/13/19 08:12 Oxygen Flow Rate (L/min) 1 Oxygen Delivery Method Room Air Weight: 158 lb 11.2 oz Body Mass Index (BMI) 27.2 Intake and Output for Last 24 Hours 01/11/19 01/12/19 01/13/19 23:59 23:59 23:59 Intake Total 5399 / 5399 2107 / 2107 1881 / 1881 Output Total 1550 / 1550 1250 / 1250 Balance 5399 / 5399 557 / 557 631 / 631 Microbiology Past 72 Hours 01/13/19 08:50 C. difficile DNA Amplification - Final Stool 01/10/19 13:45 Gram Stain - Final Wound - Leg, Right Wound Culture - Preliminary Pasturella species Anaerobic Culture - Preliminary Checking for anaerobes, further studies to follow. 01/10/19 15:50 Blood Culture - Preliminary Blood Culture (Wb) - Anticubital Left No growth in 48 hours. 01/10/19 12:02 Blood Culture - Preliminary Blood Culture (Wb) - Anticubital Right No growth in 48 hours. 01/11/19 13:52 Gram Stain - Final Tissue - Other Wound Culture - Preliminary No growth-Final to follow Laboratory Tests Past 24 Hrs 01/13/19 01/13/19 05:45 05:45 WBC 4.6 RBC 3.41 L Hgb 10.5 L Hct 33.1 L MCV 97.1 MCH 30.8 MCHC 31.7 L RDW 12.8 RDW Differential 43.0 Plt Count 270 MPV 9.4 Immature Gran % (Auto) 1.100 H Neut % (Auto) 67.1 Lymph % (Auto) 18.6 L Gulf % (Auto) 11.0 H Eos % (Auto) 1.3 Baso % (Auto) 0.9 Absolute Neuts (auto) 3.1 Absolute Lymphs (auto) 0.85 Total Counted Not Reportable Sodium 144 Potassium 3.2 L Chloride 110 H Carbon Dioxide 27.0 Anion Gap 7 BUN 3 L Creatinine 0.55 Estim Creat Clear Calc 37.45 Est GFR (MDRD) Af Amer 137 Est GFR (MDRD) Non-Af 113 BUN/Creatinine Ratio 5.5 L Glucose 101 Calcium 9.3 Discharge Diet: No Restrictions Discharge Activity: Return to Normal Activity Weight Bearing Status: Weight bearing as tolerated Call your doctor if your incision/area has: Continuous Slow Oozing, Sudden Increased Bleeding, Increased Pain/ Swelling, Increased Redness, Foul Smelling Discharge, Swelling at the incision site Call your doctor if you observe: Fever of 101 or Higher, Calf discomfort, Uncontrolled pain Home Medications: Medications to take at Discharge Omeprazole 20 mg PO DAILY 01/10/19 Diazepam [Valium] 5 mg PO 4X/DAY PRN PRN #30 tab 01/12/19 Docusate Sodium [Colace] 100 mg PO BID #60 cap 01/12/19 Lactobacillus Acidophilus/Fos [Acidophilus Probiotic Tablet] 1 ea PO BID #60 tab 01/12/19 Oxycodone HCl/Acetaminophen [Percocet 5/325] 1 - 2 tab PO 4X/DAY PRN PRN 7 Days #60 tab 01/12/19 proMETHazine tablet [Phenergan tablet] 25 mg PO 4X/DAY PRN PRN #30 tab 01/12/19 Amox/Clavulanate Tablet [Augmentin Tablet] 875 mg PO Q12H #28 tablet 01/13/19 Following Prescrptions Were Given to Patient: Amox/Clavulanate Tablet [Augmentin Tablet] 875 mg PO Q12H #28 tablet Diazepam [Valium] 5 mg PO 4X/DAY PRN PRN #30 tab PRN Reason: Spasms Oxycodone HCl/Acetaminophen [Percocet 5/325] 1 - 2 tab PO 4X/DAY PRN PRN 7 Days #60 tab PRN Reason: Pain proMETHazine tablet [Phenergan tablet] 25 mg PO 4X/DAY PRN PRN #30 tab PRN Reason: Nausea Docusate Sodium [Colace] 100 mg PO BID #60 cap Lactobacillus Acidophilus/Fos [Acidophilus Probiotic Tablet] 1 ea PO BID #60 tab Primary Care Physician: Marifer Marquez [Primary Care Provider] - Please follow up with your Primary Care Physician in: one week Please Follow Up With: Lakhwinder Davis MD When: one week Please Follow Up With: Neel Haines MD When: 1-2 weeks Patient Instructions: Animal Bites and Scratches, Discharge Instructions for Cellulitis, ED Bite Cat Disposition: Home with Home Health Minutes spent on discharge:: 45 Patient Condition:: Stable Medical Necessity - Tobacco Use Smoking Status: Never smoker Meaningful Use Info Meaningful Use Diagnoses (Choose all that apply): None applicable Code Visit Inpatient E&M: 61295 Disch Hosp
[2019-01-13 13:52] VITALS: BP 159/94; PULSE 97; RESP 18; TEMP 36.8; O2SAT 94
--- NOTE | 2019-01-13 15:42 | NURSING ---
called [facility] for wound vac order picker/assembler. conformation number [id number]
[2019-01-13 15:51] VITALS: BP 159/94; PULSE 97; RESP 18; TEMP 36.8; O2SAT 94
== END 2019-01-13 15:51 | disposition home or self-care (01) | DRG 571 ==
LOC: ED 11:54 → MS3 13:11
PROVIDERS: Surgery; Admitting Provider Student in an Organized Health Care Education/Training Program; Emergency Provider Emergency Medicine; Family Provider Family Medicine; PCP Family Medicine; Referring Provider Student in an Organized Health Care Education/Training Program; Visit Provider Student in an Organized Health Care Education/Training Program
PROC: 0J9N0ZX Drainage of Right Lower Leg Subcutaneous Tissue and Fascia, Open Approach, Diagnostic (ICD-10-PCS; principal; 2019-01-11 12:35)
DX: L03.115 Cellulitis of right lower limb (principal); I96 Gangrene, not elsewhere classified; B96.89 Other specified bacterial agents as the cause of diseases classified elsewhere; L02.415 Cutaneous abscess of right lower limb; W55.01XD Bitten by cat, subsequent encounter; Y93.89 Activity, other specified; Y92.89 Other specified places as the place of occurrence of the external cause; Y99.8 Other external cause status; M17.11 Unilateral primary osteoarthritis, right knee; E87.6 Hypokalemia; M79.3 Panniculitis, unspecified; I89.1 Lymphangitis; S51.852D Open bite of left forearm, subsequent encounter
CPT/HCPCS: 11042; 36415; 73590; 73700; 80048; 84134; 85025; 85652; 86140; 87040; 87070; 87075; 87076; 87077; 87102; 87176; 87186; 87205; 87206; 87493; 87640; 88305; 93005; 93971; 97110; 97162; 97165; 97530; 97802; 99203; 99284; J7030; A4216; G0463; J2405

== ENCOUNTER 2019-01-28 10:00 | Outpatient (RCR) | payer MEDICARE, MEDICAID, SELFPAY ==
[2019-01-19 01:26] VITALS: BP 150/73; PULSE 94; RESP 18; TEMP 36.1; BMI 27.1
[2019-01-22 13:40] VITALS: BP 126/85; PULSE 119; RESP 20; TEMP 36.6; BMI 27.1
--- NOTE | 2019-01-22 17:15 | PCM.WC.PN ---
(1) Open bite of right lower leg Status: Acute Code(s): S81.851A - Open bite, right lower leg, initial encounter Comment: infected cat bite wounds right posterior leg (2) Abscess of right lower leg Status: Acute Code(s): L02.415 - Cutaneous abscess of right lower limb Type of Wound Date of Service: 01/22/19 Chief Complaint: Cat bite of right leg and left forearm. History of Wound: Ms. Hayes is an 83-year-old who was in her stable state of healthshe was bitten by her own cat on 01/05/19. Was subsequently seen at an urgent care and started on doxycycline. Was also seen by her primary care physician due to worsening right lower extremity discharge. She was subsequently referred to the wound center her primary care physician where she saw Dr. Augustine. She was sent to the ED where she was then admitted. On 01/11/19 Dr. Davis took her to surgery for 1. Surgical preparation right posterior leg with incision and drainag and excisional debridement necrotizing cat bite wound infection abscess (36 cm2). 2. Surgical preparation right proximal lateral leg with incision and drainage and excisional debridement necrotizing cat bite wound infection abscess (24 cm2). Surgical cultures from 01/11/19 showed Clostridium species and Porphyromonas gingivalis. Patient did not want a PICC line with home IV antibiotics. Her case was discussed with ID, Dr. Haines and he recommended oral Augmentin. Patient's wound care consists of a wound VAC change 3 times per week. Progress of Wound: Stable - Physical Exam Vital Signs Temp Pulse Resp BP 97.8 F 119 H 20 H 126/85 H 01/22/19 13:40 01/22/19 13:40 01/22/19 13:40 01/22/19 13:40 General: Alert, Oriented x3, Cooperative HEENT: Atraumatic Oral: Moist Mucosa Lungs: Clear to auscultation, Normal air movement Cardiovascular: Regular rate Abdomen: Bowel Sounds Present, Soft Extremities: Capillary Refill Less than 3 Seconds, No Calf Tenderness, Edema, Peripheral Pulses Normal Skin: Ulcer/ Wound - right posterior leg and proximal lateral leg Wound Measurements and Assessment WC - Nurse 1 - General Ulcer Measurement Start: 01/22/19 13:40 Freq: Status: Active Protocol: Activity Type Activity Date Activity User E-Sign Co-Sign Detail Recorded Client Recorded Date Recorded By Document 01/22/19 13:40 DL [id number] 01/22/19 13:58 DL 01/22/19 13:40 Wound Center Nurse 1 [Ulcer Assessment] 3. R lateral LE -Current Size (cm) - Length 3.8 -Current Size (cm) - Width 4.6 -Current Size (cm) - Depth 0.6 -Total Square Cm 17.48 -Photo Taken Yes -Exudate Amt Small -Exudate Type Serosanguineous -Wound Margin Distinct, Outline Attached -Granulation Amt Large (67-100%) -Granulation Quality Red -Necrosis Amt Small (1-33%) -Necrotic Tissue Type Adherent Slough -Structure Exposed N/A -Texture (Eden-wound Skin Appearance) Scarring -Moisture (Eden-wound Skin Appearance No Abnormality ) -Color (Eden-wound Skin Appearance) Rubor -Temperature (Eden-wound Skin No Abnormality Appearance) (Pt Warm) -Tenderness on Palpation (Eden-wound No Skin Appearance) -Ulcer Cleansing Wound Cleanser -Foul Odor after Cleansing No -Anesthetic Used 5% Lidocaine Gel 2. R posterior LE cluster -Current Size (cm) - Length 5.3 -Current Size (cm) - Width 4.4 -Current Size (cm) - Depth 1 -Total Square Cm 23.32 -Photo Taken Yes -Exudate Amt Small -Exudate Type Serosanguineous -Wound Margin Distinct, Outline Attached -Granulation Amt Large (67-100%) -Granulation Quality Red -Necrosis Amt Small (1-33%) -Necrotic Tissue Type Adherent Slough -Structure Exposed N/A -Texture (Eden-wound Skin Appearance) Scarring -Moisture (Eden-wound Skin Appearance No Abnormality ) -Color (Eden-wound Skin Appearance) No Abnormality Rubor -Temperature (Eden-wound Skin No Abnormality Appearance) (Pt Warm) -Tenderness on Palpation (Eden-wound No Skin Appearance) -Ulcer Cleansing Wound Cleanser -Foul Odor after Cleansing No -Anesthetic Used 4% Lidocaine Solution 5% Lidocaine Gel 1. L arm medial -Current Size (cm) - Length 0.5 -Current Size (cm) - Width 0.3 -Current Size (cm) - Depth 0.1 -Total Square Cm 0.15 -Photo Taken No -Exudate Amt None Present -Wound Margin Thickened -Granulation Amt None Present (0 %) -Necrosis Amt Small (1-33%) -Necrotic Tissue Type Adherent Slough -Structure Exposed N/A -Texture (Eden-wound Skin Appearance) Scarring -Moisture (Eden-wound Skin Appearance No Abnormality ) -Color (Eden-wound Skin Appearance) No Abnormality -Temperature (Eden-wound Skin No Abnormality Appearance) (Pt Warm) -Tenderness on Palpation (Eden-wound No Skin Appearance) -Ulcer Cleansing Wound Cleanser -Foul Odor after Cleansing No -Anesthetic Used 4% Lidocaine Solution WC - Nurse 2 - General Ulcer CM Notes Start: 01/22/19 13:40 Freq: Status: Active Protocol: Activity Type Activity Date Activity User E-Sign Co-Sign Detail Recorded Client Recorded Date Recorded By Document 01/22/19 14:11 [id number] 01/22/19 14:21 01/22/19 14:11 Wound Center Nurse 2 [Procedure/Treatment] 3. R lateral LE -Time 14:12 -Correct Patient Yes -Correct Side, Site, Position Yes -Correct Procedure Yes -Procedure Performed Yes -Type of Procedure Debridement -Clinical Debridement Subcutaneous -Post Debridement Size (cm) - Length 4 -Post Debridement Size (cm) - Width 4.8 -Post Debridement Size (cm) - Depth 0.7 -Total Square Cm 19.2 -Wound/Ulcer Outcome Not Healed -Ulcer Cleansing Rinsed/ Irrigated with Saline -Foul Odor after Cleansing No -Bioengineered Tissue No -Bleeding Controlled with Pressure -Offloading No -Treatment Response Procedure Tolerated Well 2. R posterior LE cluster -Time 14:15 -Correct Patient Yes -Correct Side, Site, Position Yes -Correct Procedure Yes -Procedure Performed Yes -Type of Procedure Debridement -Clinical Debridement Subcutaneous -Post Debridement Size (cm) - Length 6.0 -Post Debridement Size (cm) - Width 5.3 -Post Debridement Size (cm) - Depth 1.5 -Total Square Cm 31.80 -Wound/Ulcer Outcome Not Healed -Ulcer Cleansing Rinsed/ Irrigated with Saline -Foul Odor after Cleansing No -Bioengineered Tissue No -Bleeding Controlled with Pressure -Offloading No -Treatment Response Procedure Tolerated Well 1. L arm medial -Correct Patient No -Correct Side, Site, Position No -Correct Procedure No -Procedure Performed No [See Physician Procedure note for Specifics] Pain Scale: 0-10 Numeric [Pain] -Is Patient Pain Free? Yes Musculoskeletal: No Tenderness to Palpation of Joints or Extremities Neurological: Neuro grossly intact Psych/Mental Status: Normal Affect, Appropriate Debridement Note Post-Debridement Measurements/Treatment WC - Nurse 2 - General Ulcer CM Notes Start: 01/22/19 13:40 Freq: Status: Active Protocol: Activity Type Activity Date Activity User E-Sign Co-Sign Detail Recorded Client Recorded Date Recorded By Document 01/22/19 14:11 [id number] 01/22/19 14:21 01/22/19 14:11 Wound Center Nurse 2 3. R lateral LE -Time 14:12 -Correct Patient Yes -Correct Side, Site, Position Yes -Correct Procedure Yes -Procedure Performed Yes -Type of Procedure Debridement -Clinical Debridement Subcutaneous -Post Debridement Size (cm) - Length 4 -Post Debridement Size (cm) - Width 4.8 -Post Debridement Size (cm) - Depth 0.7 -Total Square Cm 19.2 -Wound/Ulcer Outcome Not Healed -Ulcer Cleansing Rinsed/ Irrigated with Saline -Foul Odor after Cleansing No -Bioengineered Tissue No -Bleeding Controlled with Pressure -Offloading No -Treatment Response Procedure Tolerated Well 2. R posterior LE cluster -Time 14:15 -Correct Patient Yes -Correct Side, Site, Position Yes -Correct Procedure Yes -Procedure Performed Yes -Type of Procedure Debridement -Clinical Debridement Subcutaneous -Post Debridement Size (cm) - Length 6.0 -Post Debridement Size (cm) - Width 5.3 -Post Debridement Size (cm) - Depth 1.5 -Total Square Cm 31.80 -Wound/Ulcer Outcome Not Healed -Ulcer Cleansing Rinsed/ Irrigated with Saline -Foul Odor after Cleansing No -Bioengineered Tissue No -Bleeding Controlled with Pressure -Offloading No -Treatment Response Procedure Tolerated Well 1. L arm medial -Correct Patient No -Correct Side, Site, Position No -Correct Procedure No -Procedure Performed No Pain Scale: 0-10 Numeric Is Patient Pain Free? Yes Wound debrided: right posterior leg Laterality: Right Type of Debridement: Excisional debridement Anesthesia Used: 5% Lidocaine Gel Depth: Down to and including healthy tissue, in the subcutaneous layer Percentage of wound debrided: 100 Instrument Used: 5mm curette Tissue Removed: Subcutaneous tissue and slough Severity: Fat Layer Exposed Amount of bleeding with debridement: Mild Bleeding Controlled with: Pressure, Compression and gauze Patient tolerated procedure well - Additional Wound Wound debrided: Right proximal lateral leg Laterality: Right Type of Debridement: Excisional debridement Anesthesia Used: 5% Lidocaine Gel Depth: Down to and including healthy tissue, in the subcutaneous layer Percentage of wound debrided: 100 Instrument Used: 5mm curette Tissue Removed: Subcutaneous tissue and slough Severity: Fat Layer Exposed Amount of bleeding with debridement: Mild Bleeding Controlled with: Pressure, Compression and gauze Patient tolerated procedure: Patient tolerated procedure well Assessment/Plan Assessment: 1. Infected necrotizing cat bite wound abscess right posterior leg. 2. Infected necrotizing cat bite wound abscess right proximal lateral leg. Plan: Patient was seen and evaluated in the wound center today. An excisional debridement was performed and patient tolerated procedure well. Patient's wound care consists of wound VAC change 3 times per week. She has home health changing it twice per week. She is on Augmentin for positive surgical cultures from 01/11/19 that showed Clostridium species and Porphyromonas. We will have her follow up with Dr. Haines, ID, for further evaluation of her antibiotics. Patient states that she will run out of her Augmentin tomorrow, so will refill the Augmentin (28 tabs). She states she is having diarrhea, but that is nothing new and she is only going a couple times per day. She will also have an BERTIN wrap placed to help with edema management of her lower legs. Code Visit 03959
[2019-01-28 13:19] VITALS: BP 146/76; PULSE 97; RESP 18; TEMP 36.6; BMI 27.1
--- NOTE | 2019-01-28 16:46 | PCM.HP.ID ---
Problem List (1) Necrotizing soft tissue infection Status: Acute Reason for Consult: cat bite Consulted by: Dr. Davis History of Present Illness: The patient is a 83 year old F who was bit by her cat mid-December. Had swelling and pain, went to urgent care, given doxy. Sx worsened, referred to wound care, taken to OR by Dr. Davis 01/11/19 for debridement of RLE necrotic abscess extending down to fascia. Discharged on , wound vac in place. Tolerating augmentin well, some mild diarrhea, using probiotics. No fever. Leg pain stable. No drainage, no redness. Full ROS performed and neg except as noted above. - Medical History Surgical History: reviewed Allergies/Adverse Reactions: Allergies azithromycin [From Zithromax] Adverse Reaction (Verified 01/10/19 11:15) Nausea cephalexin [From Keflex] Adverse Reaction (Verified 01/10/19 11:15) Nausea ciprofloxacin [From Cipro] Adverse Reaction (Verified 01/10/19 11:15) Nausea erythromycin base Adverse Reaction (Verified 01/10/19 11:15) Nausea sulfamethoxazole [From Bactrim] Adverse Reaction (Verified 01/10/19 11:15) Nausea trimethoprim [From Bactrim] Adverse Reaction (Verified 01/10/19 11:15) Nausea Home Medications: Ambulatory Orders Medication Instructions Recorded Omeprazole 20 mg PO DAILY 01/10/19 Diazepam [Valium] 5 mg PO 4X/DAY PRN PRN #30 tab 01/12/19 Docusate Sodium [Colace] 100 mg PO BID #60 cap 01/12/19 Lactobacillus Acidophilus/Fos 1 ea PO BID #60 tab 01/12/19 [Acidophilus Probiotic Tablet] proMETHazine tablet [Phenergan 25 mg PO 4X/DAY PRN PRN #30 tab 01/12/19 tablet] Amox/Clavulanate Tablet [Augmentin 875 mg PO Q12H #28 tablet 01/13/19 Tablet] - Social History Tobacco Use: non-smoker Vital Signs Temp Pulse Resp BP 97.8 F 97 18 146/76 H 01/28/19 13:19 01/28/19 13:19 01/28/19 13:19 01/28/19 13:19 Weight: 71.668 kg Body Mass Index (BMI) 27.1 reviewed, cr 0.5 - Other Studies Radiology: [] reviewed Other Studies: [] Route of nutrition/ use of supplements: [] Nutritional Intake: [] IV Site: [] Pride Catheter: [] - Physical Exam General: Alert, Oriented x3, Cooperative, No apparent distress HEENT: Atraumatic, PERRLA, EOMI Neck: Supple, No Nodes Lungs: Clear to auscultation, Normal air movement Cardiovascular: Regular rate, Regular Rhythm Abdomen: Soft, Non Tender, Non-Distended Extremities: No edema Skin: Ulcer/ Wound - RLE with wound, no drainage, no erythema around the site Neurological: Cranial nerves II-XII grossly intact - Assessment/Plan Antibiotics: [] Assessment/Plan: [] RLE cat bite with necrotizing abscess - much improved s/p I&D, abx, and wound vac. Continue augmentin for one more week. Thank you, will follow as needed, d/w nursing.
--- NOTE | 2019-01-29 12:50 | PCM.WC.PN ---
(1) Open bite of right lower leg Status: Acute Current Visit: Yes Code(s): S81.851A - Open bite, right lower leg, initial encounter Comment: infected cat bite wounds right posterior leg (2) Abscess of right lower leg Status: Acute Current Visit: Yes Code(s): L02.415 - Cutaneous abscess of right lower limb Type of Wound Date of Service: 01/28/19 Chief Complaint: Cat bite of right leg and left forearm. History of Wound: Ms. Hayes is an 83-year-old who was in her stable state of healthshe was bitten by her own cat on 01/05/19. Was subsequently seen at an urgent care and started on doxycycline. Was also seen by her primary care physician due to worsening right lower extremity discharge. She was subsequently referred to the wound center her primary care physician where she saw Dr. Augustine. She was sent to the ED where she was then admitted. On 01/11/19 Dr. Davis took her to surgery for 1. Surgical preparation right posterior leg with incision and drainag and excisional debridement necrotizing cat bite wound infection abscess (36 cm2). 2. Surgical preparation right proximal lateral leg with incision and drainage and excisional debridement necrotizing cat bite wound infection abscess (24 cm2). Surgical cultures from 01/11/19 showed Clostridium species and Porphyromonas gingivalis. Patient did not want a PICC line with home IV antibiotics. Her case was discussed with ID, Dr. Haines and he recommended oral Augmentin. Patient's wound care consists of a wound VAC change 3 times per week. Progress of Wound: Improved. - Physical Exam Vital Signs Temp Pulse Resp BP 97.8 F 97 18 146/76 H 01/28/19 13:19 01/28/19 13:19 01/28/19 13:19 01/28/19 13:19 General: Alert, Oriented x3, Cooperative HEENT: Atraumatic Oral: Moist Mucosa Lungs: Normal air movement Cardiovascular: Regular rate Extremities: Capillary Refill Less than 3 Seconds, Edema - +1 non pitting of right leg, Peripheral Pulses Normal Skin: Ulcer/ Wound - Right lateral and right posterior leg open areas Wound Measurements and Assessment WC - Nurse 1 - General Ulcer Measurement Start: 01/22/19 13:40 Freq: Status: Active Protocol: Activity Type Activity Date Activity User E-Sign Co-Sign Detail Recorded Client Recorded Date Recorded By Document 01/28/19 13:19 [email or web address] [id number] 01/28/19 13:33 DL 01/28/19 13:19 Wound Center Nurse 1 [Ulcer Assessment] 3. R lateral LE -Current Size (cm) - Length 3.6 -Current Size (cm) - Width 4 -Current Size (cm) - Depth 0.5 -Total Square Cm 14.4 -Photo Taken No -Exudate Amt Small -Exudate Type Serosanguineous -Wound Margin Distinct, Outline Attached -Granulation Amt Large (67-100%) -Granulation Quality Red -Necrosis Amt Small (1-33%) -Necrotic Tissue Type Adherent Slough -Structure Exposed N/A -Texture (Eden-wound Skin Appearance) Scarring -Moisture (Eden-wound Skin Appearance No Abnormality ) -Color (Eden-wound Skin Appearance) No Abnormality -Temperature (Eden-wound Skin No Abnormality Appearance) (Pt Warm) -Tenderness on Palpation (Eden-wound No Skin Appearance) -Ulcer Cleansing Wound Cleanser -Foul Odor after Cleansing No -Anesthetic Used 4% Lidocaine Solution 2. R posterior LE cluster -Current Size (cm) - Length 5 -Current Size (cm) - Width 4.5 -Current Size (cm) - Depth 0.7 -Total Square Cm 22.5 -Photo Taken No -Exudate Amt Medium -Exudate Type Serosanguineous -Wound Margin Distinct, Outline Attached -Granulation Amt Large (67-100%) -Granulation Quality Red -Necrosis Amt Small (1-33%) -Necrotic Tissue Type Adherent Slough -Structure Exposed N/A -Texture (Eden-wound Skin Appearance) Scarring -Moisture (Eden-wound Skin Appearance No Abnormality ) -Color (Eden-wound Skin Appearance) No Abnormality -Temperature (Eden-wound Skin No Abnormality Appearance) (Pt Warm) -Tenderness on Palpation (Eden-wound No Skin Appearance) -Ulcer Cleansing Wound Cleanser -Foul Odor after Cleansing No -Anesthetic Used 4% Lidocaine Solution 1. L arm medial -Current Size (cm) - Length 0 -Current Size (cm) - Width 0 -Current Size (cm) - Depth 0 -Total Square Cm 0 -Photo Taken Yes -Exudate Amt None Present -Wound Margin Flat & Intact -Granulation Amt None Present (0 %) -Necrosis Amt None Present (0 %) -Structure Exposed N/A -Texture (Eden-wound Skin Appearance) Scarring -Moisture (Eden-wound Skin Appearance No Abnormality ) -Color (Eden-wound Skin Appearance) No Abnormality -Temperature (Eden-wound Skin No Abnormality Appearance) (Pt Warm) -Tenderness on Palpation (Eden-wound No Skin Appearance) -Foul Odor after Cleansing No WC - Nurse 2 - General Ulcer CM Notes Start: 01/22/19 13:40 Freq: Status: Active Protocol: Activity Type Activity Date Activity User E-Sign Co-Sign Detail Recorded Client Recorded Date Recorded By Document 01/28/19 13:53 [id number] 01/28/19 13:54 01/28/19 13:53 Wound Center Nurse 2 [Procedure/Treatment] 3. R lateral LE -Time 13:53 -Correct Patient Yes -Correct Side, Site, Position Yes -Correct Procedure Yes -Procedure Performed Yes -Type of Procedure Debridement -Clinical Debridement Subcutaneous -Post Debridement Size (cm) - Length 3.5 -Post Debridement Size (cm) - Width 4.5 -Post Debridement Size (cm) - Depth 1.0 -Total Square Cm 15.75 -Wound/Ulcer Outcome Not Healed -Ulcer Cleansing Rinsed/ Irrigated with Saline -Foul Odor after Cleansing No -Bioengineered Tissue No -Bleeding Controlled with Pressure -Offloading No -Treatment Response Procedure Tolerated Well 2. R posterior LE cluster -Time 13:53 -Correct Patient Yes -Correct Side, Site, Position Yes -Correct Procedure Yes -Procedure Performed Yes -Type of Procedure Debridement -Clinical Debridement Subcutaneous -Post Debridement Size (cm) - Length 5.0 -Post Debridement Size (cm) - Width 4.8 -Post Debridement Size (cm) - Depth 1.5 -Total Square Cm 24.00 -Wound/Ulcer Outcome Not Healed -Ulcer Cleansing Rinsed/ Irrigated with Saline -Foul Odor after Cleansing No -Bioengineered Tissue No -Bleeding Controlled with Pressure -Offloading No -Treatment Response Procedure Tolerated Well [See Physician Procedure note for Specifics] Pain Scale: 0-10 Numeric [Pain] -Is Patient Pain Free? Yes Musculoskeletal: No Tenderness to Palpation of Joints or Extremities Neurological: Neuro grossly intact Psych/Mental Status: Normal Affect, Appropriate Debridement Note Post-Debridement Measurements/Treatment WC - Nurse 2 - General Ulcer CM Notes Start: 01/22/19 13:40 Freq: Status: Active Protocol: Activity Type Activity Date Activity User E-Sign Co-Sign Detail Recorded Client Recorded Date Recorded By Document 01/22/19 14:11 [id number] 01/22/19 14:21 Document 01/28/19 13:53 [id number] 01/28/19 13:54 01/22/19 01/28/19 14:11 13:53 Wound Center Nurse 2 3. R lateral LE -Time 14:12 13:53 -Correct Patient Yes Yes -Correct Side, Site, Position Yes Yes -Correct Procedure Yes Yes -Procedure Performed Yes Yes -Type of Procedure Debridement Debridement -Clinical Debridement Subcutaneous Subcutaneous -Post Debridement Size (cm) - Length 4 3.5 -Post Debridement Size (cm) - Width 4.8 4.5 -Post Debridement Size (cm) - Depth 0.7 1.0 -Total Square Cm 19.2 15.75 -Wound/Ulcer Outcome Not Healed Not Healed -Ulcer Cleansing Rinsed/ Rinsed/ Irrigated with Irrigated with Saline Saline -Foul Odor after Cleansing No No -Bioengineered Tissue No No -Bleeding Controlled with Pressure Pressure -Offloading No No -Treatment Response Procedure Procedure Tolerated Well Tolerated Well 2. R posterior LE cluster -Time 14:15 13:53 -Correct Patient Yes Yes -Correct Side, Site, Position Yes Yes -Correct Procedure Yes Yes -Procedure Performed Yes Yes -Type of Procedure Debridement Debridement -Clinical Debridement Subcutaneous Subcutaneous -Post Debridement Size (cm) - Length 6.0 5.0 -Post Debridement Size (cm) - Width 5.3 4.8 -Post Debridement Size (cm) - Depth 1.5 1.5 -Total Square Cm 31.80 24.00 -Wound/Ulcer Outcome Not Healed Not Healed -Ulcer Cleansing Rinsed/ Rinsed/ Irrigated with Irrigated with Saline Saline -Foul Odor after Cleansing No No -Bioengineered Tissue No No -Bleeding Controlled with Pressure Pressure -Offloading No No -Treatment Response Procedure Procedure Tolerated Well Tolerated Well 1. L arm medial -Correct Patient No -Correct Side, Site, Position No -Correct Procedure No -Procedure Performed No Pain Scale: 0-10 Numeric Is Patient Pain Free? Yes Yes Wound debrided: lateral leg Laterality: Right Type of Debridement: Excisional debridement Anesthesia Used: 5% Lidocaine Gel Depth: Down to and including healthy tissue, in the subcutaneous layer Percentage of wound debrided: 100 Instrument Used: 5mm curette Tissue Removed: Subcutaneous tissue and slough Severity: Fat Layer Exposed Amount of bleeding with debridement: Mild Bleeding Controlled with: Pressure Patient tolerated procedure well - Additional Wound Wound debrided: posterior leg Laterality: Right Type of Debridement: Excisional debridement Anesthesia Used: 5% Lidocaine Gel Depth: Down to and including healthy tissue Percentage of wound debrided: 100 Instrument Used: 5mm curette Tissue Removed: Subcutaneous tissue and slough Severity: Fat Layer Exposed Amount of bleeding with debridement: Mild Bleeding Controlled with: Pressure Patient tolerated procedure: Patient tolerated procedure well Assessment/Plan Active Problems Open bite of right lower leg (Acute) infected cat bite wounds right posterior leg Abscess of right lower leg (Acute) Assessment: 1. Infected necrotizing cat bite wound abscess right posterior leg. 2. Infected necrotizing cat bite wound abscess right proximal lateral leg. Plan: Patient was seen and evaluated in the wound center today. An excisional debridement was performed and patient tolerated procedure well. Patient's wound care consists of wound VAC change 3 times per week. She has home health changing it twice per week. She is on Augmentin for positive surgical cultures from 01/11/19 that showed Clostridium species and Porphyromonas. She saw Dr. Haines, ID, today, await for his consult. She states she is to continue her Augmentin prescription. She states she is tolerating the augmentin ok. She will also have an BERTIN wrap placed to help with edema management of her lower legs. She will follow up in 2 weeks at the wound center. She is to come in sooner if she has any issues. Code Visit 94110
== END 2019-02-17 23:59 ==
LOC: WC 10:00
PROVIDERS: Family Provider Family Medicine; PCP Family Medicine; Visit Provider Nurse Practitioner Family
DX: S51.852A Open bite of left forearm, initial encounter (principal); W55.01XA Bitten by cat, initial encounter; L02.415 Cutaneous abscess of right lower limb
CPT/HCPCS: 11042; 11045; 97605; 97606

== ENCOUNTER 2019-03-18 09:45 | Outpatient (RCR) | payer MEDICARE, MEDICAID, SELFPAY ==
[2019-02-18 00:57] VITALS: BP 146/76; PULSE 97; RESP 18; TEMP 36.6; BMI 27.2
--- NOTE | 2019-02-18 12:28 | PCM.WC.PN ---
Type of Wound Date of Service: 02/18/19 Chief Complaint: Cat bite wounds right posterior leg and right proximal lateral leg. History of Wound: Surgery - 01/11/19 - 1. Surgical preparation right posterior leg with incision and drainage and excisonal debridement necrotizing cat bite wound infection abscess (36 cm2). 2. Surgical preparation right proximal lateral leg with incision and drainage and excisional debridement necrotizing cat bite wound infection abscess (24 cm2). Wound care - VAC. Operative culture - Pasteurella multocida, Clostridium species, and Porphyromonas gingivalis. She was discharged on Augmentin. CT right leg was done on 01/10/19. It showed soft tissue swelling and gas consistent with bite wound. There is no organized collection. Osteoarthrosis of the right knee. Small knee effusion.. Prealbumin fron 01/11/19 was 16.8. Encourage nutritional supplementation with protein to help the healing process. Today she denies fever. Her appetite is ok. Progress of Wound: Improved. - Physical Exam Vital Signs Temp Pulse Resp BP 98.4 F 102 H 18 129/73 H 02/18/19 12:43 02/18/19 12:43 02/18/19 00:57 02/18/19 12:43 Wound Measurements and Assessment WC - Nurse 1 - General Ulcer Measurement Start: 02/18/19 12:43 Freq: Status: Active Protocol: Activity Type Activity Date Activity User E-Sign Co-Sign Detail Recorded Client Recorded Date Recorded By Document 02/18/19 12:43 [id number] 02/18/19 13:01 02/18/19 12:43 Wound Center Nurse 1 [Ulcer Assessment] 3. R lateral LE -Combined with other wound No -Current Size (cm) - Length 3.5 -Current Size (cm) - Width 3.0 -Current Size (cm) - Depth 0.2 -Total Square Cm 10.50 -Photo Taken No -Epithelialization Large 67-100% -Tunneling No -Undermining/Tunneling No -Circular Undermining No -Exudate Amt Small -Exudate Type Serous -Wound Margin Distinct, Outline Attached -Granulation Amt Large (67-100%) -Granulation Quality Red -Slough/Fibrin Yes -Necrosis Amt Small (1-33%) -Necrotic Tissue Type Adherent Slough -Structure Exposed None/Limited to Skin Breakdown -Texture (Eden-wound Skin Appearance) No Abnormality, Assessed -Moisture (Eden-wound Skin Appearance No Abnormality, ) Assessed -Color (Eden-wound Skin Appearance) No Abnormality, Palor -Temperature (Eden-wound Skin No Abnormality Appearance) (Pt Warm) -Tenderness on Palpation (Eden-wound No Skin Appearance) -Foul Odor after Cleansing No -Anesthetic Used 5% Lidocaine Gel 2. R posterior LE cluster -Combined with other wound No -Photo Taken No -Epithelialization Large 67-100% -Tunneling No -Undermining/Tunneling No -Circular Undermining No -Exudate Amt Small -Exudate Type Serous -Wound Margin Distinct, Outline Attached -Granulation Amt Large (67-100%) -Granulation Quality Red -Slough/Fibrin No -Necrosis Amt None Present (0 %) -Structure Exposed None/Limited to Skin Breakdown -Texture (Eden-wound Skin Appearance) No Abnormality, Assessed -Moisture (Eden-wound Skin Appearance No Abnormality, ) Assessed -Color (Eden-wound Skin Appearance) Assessed,Palor -Temperature (Eden-wound Skin No Abnormality Appearance) (Pt Warm) -Tenderness on Palpation (Eden-wound No Skin Appearance) -Anesthetic Used 5% Lidocaine Gel [Edema Assessment] -Lower Limb Edema Present No WC - Nurse 2 - General Ulcer CM Notes Start: 02/18/19 12:43 Freq: Status: Active Protocol: Activity Type Activity Date Activity User E-Sign Co-Sign Detail Recorded Client Recorded Date Recorded By Document 02/18/19 14:16 FUNMI [id number] 02/18/19 14:17 FUNMI 02/18/19 14:16 Wound Center Nurse 2 [Procedure/Treatment] 3. R lateral LE -Time 14:16 -Correct Patient Yes -Correct Side, Site, Position Yes -Correct Procedure Yes -Procedure Performed Yes -Type of Procedure Debridement -Clinical Debridement Subcutaneous -Post Debridement Size (cm) - Length 2.7 -Post Debridement Size (cm) - Width 3 -Post Debridement Size (cm) - Depth 0.3 -Total Square Cm 8.1 -Wound/Ulcer Outcome Not Healed -Ulcer Cleansing Rinsed/ Irrigated with Saline -Foul Odor after Cleansing No -Bioengineered Tissue No -Bleeding Controlled with Pressure -Offloading No -Treatment Response Procedure Tolerated Well 2. R posterior LE cluster -Time 14:17 -Correct Patient Yes -Correct Side, Site, Position Yes -Correct Procedure Yes -Procedure Performed Yes -Type of Procedure Debridement -Clinical Debridement Subcutaneous -Post Debridement Size (cm) - Length 4.4 -Post Debridement Size (cm) - Width 4.5 -Post Debridement Size (cm) - Depth 0.3 -Total Square Cm 19.80 -Wound/Ulcer Outcome Not Healed -Ulcer Cleansing Rinsed/ Irrigated with Saline -Foul Odor after Cleansing No -Bioengineered Tissue No -Bleeding Controlled with Pressure -Offloading No -Treatment Response Procedure Tolerated Well [See Physician Procedure note for Specifics] Pain Scale: 0-10 Numeric [Pain] -Is Patient Pain Free? Yes Debridement Note Post-Debridement Measurements/Treatment WC - Nurse 2 - General Ulcer CM Notes Start: 02/18/19 12:43 Freq: Status: Active Protocol: Activity Type Activity Date Activity User E-Sign Co-Sign Detail Recorded Client Recorded Date Recorded By Document 02/18/19 14:16 FUNMI [id number] 02/18/19 14:17 FUNMI 02/18/19 14:16 Wound Center Nurse 2 3. R lateral LE -Time 14:16 -Correct Patient Yes -Correct Side, Site, Position Yes -Correct Procedure Yes -Procedure Performed Yes -Type of Procedure Debridement -Clinical Debridement Subcutaneous -Post Debridement Size (cm) - Length 2.7 -Post Debridement Size (cm) - Width 3 -Post Debridement Size (cm) - Depth 0.3 -Total Square Cm 8.1 -Wound/Ulcer Outcome Not Healed -Ulcer Cleansing Rinsed/ Irrigated with Saline -Foul Odor after Cleansing No -Bioengineered Tissue No -Bleeding Controlled with Pressure -Offloading No -Treatment Response Procedure Tolerated Well 2. R posterior LE cluster -Time 14:17 -Correct Patient Yes -Correct Side, Site, Position Yes -Correct Procedure Yes -Procedure Performed Yes -Type of Procedure Debridement -Clinical Debridement Subcutaneous -Post Debridement Size (cm) - Length 4.4 -Post Debridement Size (cm) - Width 4.5 -Post Debridement Size (cm) - Depth 0.3 -Total Square Cm 19.80 -Wound/Ulcer Outcome Not Healed -Ulcer Cleansing Rinsed/ Irrigated with Saline -Foul Odor after Cleansing No -Bioengineered Tissue No -Bleeding Controlled with Pressure -Offloading No -Treatment Response Procedure Tolerated Well Pain Scale: 0-10 Numeric Is Patient Pain Free? Yes Wound debrided: #2 Right posterior leg. Laterality: Right Wound Grade/Stage: 2. Type of Debridement: Excisional debridement Anesthesia Used: 4% Lidocaine Solution Depth: Down to and including healthy tissue, in the subcutaneous layer Percentage of wound debrided: 100 Instrument Used: 5mm curette Tissue Removed: subcutaneous tissue. Severity: Fat Layer Exposed Amount of bleeding with debridement: Mild Bleeding Controlled with: Pressure Patient tolerated procedure well - Additional Wound Wound debrided: #3 Right proximal lateral leg. Laterality: Right Wound Grade/Stage: 2. Type of Debridement: Excisional debridement Anesthesia Used: 4% Lidocaine Solution Depth: Down to and including healthy tissue, in the subcutaneous layer Percentage of wound debrided: 100 Instrument Used: 5mm curette Tissue Removed: subcutaneous tissue. Severity: Fat Layer Exposed Amount of bleeding with debridement: Mild Bleeding Controlled with: Pressure Patient tolerated procedure: Patient tolerated procedure well Assessment/Plan Assessment: 1. Infected necrotizing cat bite wound abscess right posterior leg. 2. Infected necrotizing cat bite wound abscess right proximal lateral leg. 3. Bitten by cat. 4. s/p surgical preparation right posterior leg with incision and drainage and excisonal debridement necrotizing cat bite wound infection abscess (36 cm2) and surgical preparation right proximal lateral leg with incision and drainage and excisional debridement necrotizing cat bite wound infection abscess (24 cm2). Plan: Continue the VAC to be changed three times per week. She will also have an BERTIN wrap placed to help with edema management of her lower legs. She will continue Augmentin for her operative cultures that showed Pasteurella multocida, Clostridium species, and Porphyromonas gingivalis. Prealbumin from 01/11/19 was 16.8. Encourage nutritional supplementation with protein to help the healing process. Discussed with the patient possible skin graft versus placement of placental connective tissue graft in the Wound Center. She will think about it and let me know. Follow up in 2 weeks.
[2019-02-18 12:43] VITALS: BP 129/73; PULSE 102; TEMP 36.9; BMI 27.2
[2019-03-04 12:11] VITALS: BP 124/84; PULSE 91; RESP 18; TEMP 35.5; BMI 27.2
--- NOTE | 2019-03-04 13:17 | PCM.WC.PN ---
(1) Ulcer of right lower leg Status: Chronic Current Visit: Yes Code(s): L97.919 - Non-pressure chronic ulcer of unspecified part of right lower leg with unspecified severity (2) Ulcer of right calf with fat layer exposed Status: Chronic Current Visit: Yes Code(s): L97.212 - Non-pressure chronic ulcer of right calf with fat layer exposed (3) Open bite of right lower leg Status: Chronic Current Visit: Yes Code(s): S81.851A - Open bite, right lower leg, initial encounter Comment: infected cat bite wounds right posterior leg (4) Cat bite Status: Chronic Current Visit: Yes Code(s): W55.01XA - Bitten by cat, initial encounter Type of Wound Date of Service: 03/05/19 Chief Complaint: Cat bite of right leg and left forearm. History of Wound: Ms. Hayes is an 83-year-old who was in her stable state of healthshe was bitten by her own cat on 01/05/19. Was subsequently seen at an urgent care and started on doxycycline. Was also seen by her primary care physician due to worsening right lower extremity discharge. She was subsequently referred to the wound center her primary care physician where she saw Dr. Augustine. She was sent to the ED where she was then admitted. On 01/11/19 Dr. Davis took her to surgery for 1. Surgical preparation right posterior leg with incision and drainag and excisional debridement necrotizing cat bite wound infection abscess (36 cm2). 2. Surgical preparation right proximal lateral leg with incision and drainage and excisional debridement necrotizing cat bite wound infection abscess (24 cm2). Surgical cultures from 01/11/19 showed Clostridium species and Porphyromonas gingivalis. Patient did not want a PICC line with home IV antibiotics. Her case was discussed with ID, Dr. Haines and he recommended oral Augmentin. Patient's wound care: will stop the VAC due to improvement in the ulcers. Will start Silvercell dressing changes every other day by home health. Patient's daughter can change her dressing on the weekend. Progress of Wound: Improved. Will stop the wound VAC due to the decrease in the depth of the ulcers. - Physical Exam Vital Signs Temp Pulse Resp BP 96 F L 91 18 124/84 H 03/04/19 12:11 03/04/19 12:11 03/04/19 12:11 03/04/19 12:11 General: Alert, Oriented x3, Cooperative HEENT: Atraumatic Oral: Moist Mucosa Lungs: Normal air movement Cardiovascular: Regular rate Extremities: No edema, Capillary Refill Less than 3 Seconds, Peripheral Pulses Normal Skin: Ulcer/ Wound - Right lateral leg and right posterior leg/calf area. Wound Measurements and Assessment WC - Nurse 1 - General Ulcer Measurement Start: 02/18/19 12:43 Freq: Status: Active Protocol: Activity Type Activity Date Activity User E-Sign Co-Sign Detail Recorded Client Recorded Date Recorded By Document 03/04/19 12:11 RB [id number] 03/04/19 12:15 RB 03/04/19 12:11 Wound Center Nurse 1 [Ulcer Assessment] 3. R lateral LE -Combined with other wound No -Current Size (cm) - Length 2.6 -Current Size (cm) - Width 2.4 -Current Size (cm) - Depth 0.1 -Total Square Cm 6.24 -Tunneling No -Undermining/Tunneling No -Circular Undermining No -Exudate Amt Medium -Exudate Type Serosanguineous -Wound Margin Distinct, Outline Attached -Granulation Amt Large (67-100%) -Granulation Quality Red -Slough/Fibrin Yes -Necrosis Amt Small (1-33%) -Necrotic Tissue Type Adherent Slough -Structure Exposed N/A -Texture (Eden-wound Skin Appearance) Assessed -Moisture (Eden-wound Skin Appearance Assessed ) -Color (Eden-wound Skin Appearance) Assessed -Temperature (Eden-wound Skin No Abnormality Appearance) (Pt Warm) -Tenderness on Palpation (Eden-wound No Skin Appearance) -Ulcer Cleansing Wound Cleanser -Foul Odor after Cleansing No -Anesthetic Used 5% Lidocaine Gel 2. R posterior LE cluster -Combined with other wound No -Current Size (cm) - Length 3.5 -Current Size (cm) - Width 3.9 -Current Size (cm) - Depth 0.2 -Total Square Cm 13.65 -Photo Taken No -Tunneling No -Undermining/Tunneling No -Circular Undermining No -Exudate Amt Small -Exudate Type Serosanguineous -Wound Margin Distinct, Outline Attached -Granulation Amt Large (67-100%) -Granulation Quality Carrizo,Red -Slough/Fibrin Yes -Necrosis Amt Small (1-33%) -Necrotic Tissue Type Adherent Slough -Structure Exposed N/A -Texture (Eden-wound Skin Appearance) Assessed -Moisture (Eden-wound Skin Appearance Assessed ) -Color (Eden-wound Skin Appearance) Assessed -Temperature (Eedn-wound Skin No Abnormality Appearance) (Pt Warm) -Tenderness on Palpation (Eden-wound No Skin Appearance) -Ulcer Cleansing Wound Cleanser -Foul Odor after Cleansing No -Anesthetic Used 5% Lidocaine Gel WC - Nurse 2 - General Ulcer CM Notes Start: 02/18/19 12:43 Freq: Status: Active Protocol: Activity Type Activity Date Activity User E-Sign Co-Sign Detail Recorded Client Recorded Date Recorded By Document 03/04/19 12:57 MW [id number] 03/04/19 13:02 MW 03/04/19 12:57 Wound Center Nurse 2 [Procedure/Treatment] 3. R lateral LE -Time 12:57 -Correct Patient Yes -Correct Side, Site, Position Yes -Correct Procedure Yes -Procedure Performed Yes -Type of Procedure Debridement -Clinical Debridement Subcutaneous -Post Debridement Size (cm) - Length 2.0 -Post Debridement Size (cm) - Width 2.8 -Post Debridement Size (cm) - Depth 0.3 -Total Square Cm 5.60 -Wound/Ulcer Outcome Not Healed -Ulcer Cleansing Rinsed/ Irrigated with Saline -Foul Odor after Cleansing No -Bioengineered Tissue No -Bleeding Controlled with Pressure -Offloading No -Treatment Response Procedure Tolerated Well 2. R posterior LE cluster -Time 12:58 -Correct Patient Yes -Correct Side, Site, Position Yes -Correct Procedure Yes -Procedure Performed Yes -Type of Procedure Debridement -Clinical Debridement Subcutaneous -Post Debridement Size (cm) - Length 3.8 -Post Debridement Size (cm) - Width 3.6 -Post Debridement Size (cm) - Depth 0.2 -Total Square Cm 13.68 -Wound/Ulcer Outcome Not Healed -Ulcer Cleansing Rinsed/ Irrigated with Saline -Foul Odor after Cleansing No -Bioengineered Tissue No -Bleeding Controlled with Pressure -Offloading No -Treatment Response Procedure Tolerated Well [See Physician Procedure note for Specifics] Pain Scale: 0-10 Numeric [Pain] -Is Patient Pain Free? Yes Musculoskeletal: No Tenderness to Palpation of Joints or Extremities Lymphatic: No Cervical, Supraclavicular, or Inguinal Adenopathy Neurological: Neuro grossly intact Psych/Mental Status: Normal Affect, Appropriate Debridement Note Post-Debridement Measurements/Treatment WC - Nurse 2 - General Ulcer CM Notes Start: 02/18/19 12:43 Freq: Status: Active Protocol: Activity Type Activity Date Activity User E-Sign Co-Sign Detail Recorded Client Recorded Date Recorded By Document 02/18/19 14:16 [id number] 02/18/19 14:17 Document 03/04/19 12:57 [id number] 03/04/19 13:02 02/18/19 03/04/19 14:16 12:57 Wound Center Nurse 2 3. R lateral LE -Time 14:16 12:57 -Correct Patient Yes Yes -Correct Side, Site, Position Yes Yes -Correct Procedure Yes Yes -Procedure Performed Yes Yes -Type of Procedure Debridement Debridement -Clinical Debridement Subcutaneous Subcutaneous -Post Debridement Size (cm) - Length 2.7 2.0 -Post Debridement Size (cm) - Width 3 2.8 -Post Debridement Size (cm) - Depth 0.3 0.3 -Total Square Cm 8.1 5.60 -Wound/Ulcer Outcome Not Healed Not Healed -Ulcer Cleansing Rinsed/ Rinsed/ Irrigated with Irrigated with Saline Saline -Foul Odor after Cleansing No No -Bioengineered Tissue No No -Bleeding Controlled with Pressure Pressure -Offloading No No -Treatment Response Procedure Procedure Tolerated Well Tolerated Well 2. R posterior LE cluster -Time 14:17 12:58 -Correct Patient Yes Yes -Correct Side, Site, Position Yes Yes -Correct Procedure Yes Yes -Procedure Performed Yes Yes -Type of Procedure Debridement Debridement -Clinical Debridement Subcutaneous Subcutaneous -Post Debridement Size (cm) - Length 4.4 3.8 -Post Debridement Size (cm) - Width 4.5 3.6 -Post Debridement Size (cm) - Depth 0.3 0.2 -Total Square Cm 19.80 13.68 -Wound/Ulcer Outcome Not Healed Not Healed -Ulcer Cleansing Rinsed/ Rinsed/ Irrigated with Irrigated with Saline Saline -Foul Odor after Cleansing No No -Bioengineered Tissue No No -Bleeding Controlled with Pressure Pressure -Offloading No No -Treatment Response Procedure Procedure Tolerated Well Tolerated Well Pain Scale: 0-10 Numeric Is Patient Pain Free? Yes Yes Wound debrided: Lateral leg Laterality: Right Type of Debridement: Excisional debridement Anesthesia Used: 5% Lidocaine Gel Depth: Down to and including healthy tissue, in the subcutaneous layer Percentage of wound debrided: 100 Instrument Used: 5mm curette Tissue Removed: Subcutaneous tissue and slough Severity: Fat Layer Exposed Amount of bleeding with debridement: Mild Bleeding Controlled with: Compression and gauze Patient tolerated procedure well - Additional Wound Wound debrided: Posterior/calf ulcer Laterality: Right Type of Debridement: Excisional debridement Anesthesia Used: 5% Lidocaine Gel Depth: Down to and including healthy tissue, in the subcutaneous layer Percentage of wound debrided: 100 Instrument Used: 5mm curette Tissue Removed: Subcutaneous tissue and slough Severity: Fat Layer Exposed Amount of bleeding with debridement: Mild Bleeding Controlled with: Compression and gauze Patient tolerated procedure: Patient tolerated procedure well Assessment/Plan Active Problems Ulcer of right calf with fat layer exposed (Chronic) Ulcer of right lower leg (Chronic) Open bite of right lower leg (Chronic) infected cat bite wounds right posterior leg Cat bite (Chronic) Assessment: 1. Infected necrotizing cat bite wound abscess right posterior leg. 2. Infected necrotizing cat bite wound abscess right proximal lateral leg. Plan: Patient was seen and evaluated in the wound center today. An excisional debridement was performed and patient tolerated procedure well. Patient's wound care will stop the wound VAC due to the improvement of the ulcers. Will start Silvercell dressing changes everyother day and have homehealth assist her with these. Her daughter will be instructed how to change, so she can change it over the weekend. She completed the Augmentin for positive surgical cultures from 01/11/19 that showed Clostridium species and Porphyromonas. She saw KATELYN Knox for a consult. She will also have an BERTIN wrap placed to help with edema management of her lower legs. She will follow up in 1 week at the wound center. She is to come in sooner if she has any issues. Code Visit [id number]: [id number] Dayanna subq tissue 20 sq cm/<
[2019-03-18 10:30] VITALS: BP 139/78; PULSE 100; RESP 18; TEMP 36.1; BMI 27.2
--- NOTE | 2019-03-18 18:11 | PCM.WC.PN ---
Type of Wound Date of Service: 03/18/19 Chief Complaint: Nonhealing cat bite ulcers right posterior leg and right proximal lateral leg. History of Wound: Surgery - 01/11/19 - 1. Surgical preparation right posterior leg with incision and drainage and excisonal debridement necrotizing cat bite wound infection abscess (36 cm2). 2. Surgical preparation right proximal lateral leg with incision and drainage and excisional debridement necrotizing cat bite wound infection abscess (24 cm2). Wound care - Silver. Operative culture - Pasteurella multocida, Clostridium species, and Porphyromonas gingivalis. She was discharged on Augmentin and has finished them. CT right leg was done on 01/10/19. It showed soft tissue swelling and gas consistent with bite wound. There is no organized collection. Osteoarthrosis of the right knee. Small knee effusion.. Prealbumin fron 01/11/19 was 16.8. Encourage nutritional supplementation with protein to help the healing process. Today she denies fever. Her appetite is ok. Progress of Wound: Improved. - Physical Exam Vital Signs Temp Pulse Resp BP 97 F L 100 18 139/78 H 03/18/19 10:30 03/18/19 10:30 03/18/19 10:30 03/18/19 10:30 Debridement Note Post-Debridement Measurements/Treatment WC - Nurse 2 - General Ulcer CM Notes Start: 02/18/19 12:43 Freq: Status: Active Protocol: Activity Type Activity Date Activity User E-Sign Co-Sign Detail Recorded Client Recorded Date Recorded By Document 02/18/19 14:16 [id number] 02/18/19 14:17 Document 03/04/19 12:57 MW [id number] 03/04/19 13:02 MW Document 03/18/19 10:52 MW [id number] 03/18/19 10:57 MW 02/18/19 03/04/19 03/18/19 14:16 12:57 10:52 Wound Center Nurse 2 3. R lateral LE -Time 14:16 12:57 10:54 -Correct Patient Yes Yes Yes -Correct Side, Site, Position Yes Yes Yes -Correct Procedure Yes Yes Yes -Procedure Performed Yes Yes Yes -Type of Procedure Debridement Debridement Debridement -Clinical Debridement Subcutaneous Subcutaneous Subcutaneous -Post Debridement Size (cm) - Length 2.7 2.0 1.7 -Post Debridement Size (cm) - Width 3 2.8 1.9 -Post Debridement Size (cm) - Depth 0.3 0.3 0.1 -Total Square Cm 8.1 5.60 3.23 -Wound/Ulcer Outcome Not Healed Not Healed Not Healed -Ulcer Cleansing Rinsed/ Rinsed/ Rinsed/ Irrigated with Irrigated with Irrigated with Saline Saline Saline -Foul Odor after Cleansing No No No -Bioengineered Tissue No No No -Bleeding Controlled with Pressure Pressure Pressure -Offloading No No No -Treatment Response Procedure Procedure Procedure Tolerated Well Tolerated Well Tolerated Well 2. R posterior LE cluster -Time 14:17 12:58 10:54 -Correct Patient Yes Yes Yes -Correct Side, Site, Position Yes Yes Yes -Correct Procedure Yes Yes Yes -Procedure Performed Yes Yes Yes -Type of Procedure Debridement Debridement Debridement -Clinical Debridement Subcutaneous Subcutaneous Subcutaneous -Post Debridement Size (cm) - Length 4.4 3.8 3.5 -Post Debridement Size (cm) - Width 4.5 3.6 4.0 -Post Debridement Size (cm) - Depth 0.3 0.2 0.1 -Total Square Cm 19.80 13.68 14.00 -Wound/Ulcer Outcome Not Healed Not Healed Not Healed -Ulcer Cleansing Rinsed/ Rinsed/ Rinsed/ Irrigated with Irrigated with Irrigated with Saline Saline Saline -Foul Odor after Cleansing No No No -Bioengineered Tissue No No No -Bleeding Controlled with Pressure Pressure Pressure -Offloading No No No -Treatment Response Procedure Procedure Procedure Tolerated Well Tolerated Well Tolerated Well Pain Scale: 0-10 Numeric Is Patient Pain Free? Yes Yes Yes Wound debrided: #2 Right posterior leg. Laterality: Right Wound Grade/Stage: 2. Type of Debridement: Excisional debridement Anesthesia Used: 4% Lidocaine Solution Depth: Down to and including healthy tissue, in the subcutaneous layer Percentage of wound debrided: 100 Instrument Used: 5mm curette Tissue Removed: subcutaneous tissue. Severity: Fat Layer Exposed Amount of bleeding with debridement: Mild Bleeding Controlled with: Pressure Patient tolerated procedure well - Additional Wound Wound debrided: #3 Right proximal lateral leg. Laterality: Right Wound Grade/Stage: 2. Type of Debridement: Excisional debridement Anesthesia Used: 4% Lidocaine Solution Depth: Down to and including healthy tissue, in the subcutaneous layer Percentage of wound debrided: 100 Instrument Used: 5mm curette Tissue Removed: subcutaneous tissue. Severity: Fat Layer Exposed Amount of bleeding with debridement: Mild Bleeding Controlled with: Pressure Patient tolerated procedure: Patient tolerated procedure well Assessment/Plan Assessment: 1. 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 2. Nonhealing necrotizing cat bite ulcer abscess right proximal lateral leg. 3. Bitten by cat. 4. s/p surgical preparation right posterior leg with incision and drainage and excisonal debridement necrotizing cat bite wound infection abscess (36 cm2) and surgical preparation right proximal lateral leg with incision and drainage and excisional debridement necrotizing cat bite wound infection abscess (24 cm2). Plan: Continue Silver dressing changes daily. She will also have an BERTIN wrap placed to help with edema management of her lower legs. She was placed on Augmentin for her operative cultures that showed Pasteurella multocida, Clostridium species, and Porphyromonas gingivalis and has finished them. Prealbumin from 01/11/19 was 16.8. Encourage nutritional supplementation with protein to help the healing process. Discussed with the patient possible skin graft versus placement of placental connective tissue graft in the Wound Center. She wants to proceed with Epifix placental connective tissue graft. Will obtain insurance approval. Follow up one week.
== END 2019-03-20 23:59 ==
LOC: WC 09:45
PROVIDERS: Family Provider Family Medicine; PCP Family Medicine; Visit Provider Nurse Practitioner Family
DX: S51.852A Open bite of left forearm, initial encounter (principal); S81.851A Open bite, right lower leg, initial encounter; W55.01XA Bitten by cat, initial encounter; L02.415 Cutaneous abscess of right lower limb
CPT/HCPCS: 11042; 11045; 97605

== ENCOUNTER 2019-04-01 11:40 | Outpatient (RCR) | payer MEDICARE, MEDICAID, SELFPAY ==
[2019-03-21 00:55] VITALS: BP 139/78; PULSE 100; RESP 18; TEMP 36.1
[2019-04-01 12:02] VITALS: BP 148/72; PULSE 97; RESP 18; TEMP 36.2; BMI 27.2
--- NOTE | 2019-04-01 23:45 | PCM.WC.PN ---
Type of Wound Date of Service: 04/01/19 Chief Complaint: Nonhealing cat bite ulcers right posterior leg and right proximal lateral leg. History of Wound: Surgery - 01/11/19 - 1. Surgical preparation right posterior leg with incision and drainage and excisonal debridement necrotizing cat bite wound infection abscess (36 cm2). 2. Surgical preparation right proximal lateral leg with incision and drainage and excisional debridement necrotizing cat bite wound infection abscess (24 cm2). Wound care - Silver. Operative culture - Pasteurella multocida, Clostridium species, and Porphyromonas gingivalis. She was discharged on Augmentin and has finished them. CT right leg was done on 01/10/19. It showed soft tissue swelling and gas consistent with bite wound. There is no organized collection. Osteoarthrosis of the right knee. Small knee effusion.. Prealbumin fron 01/11/19 was 16.8. Encourage nutritional supplementation with protein to help the healing process. Today she denies fever. Her appetite is ok. Progress of Wound: Improved. - Physical Exam Vital Signs Temp Pulse Resp BP 97.2 F L 97 18 148/72 H 04/01/19 12:02 04/01/19 12:02 04/01/19 12:02 04/01/19 12:02 Wound Measurements and Assessment WC - Nurse 1 - General Ulcer Measurement Start: 04/01/19 12:02 Freq: Status: Active Protocol: Activity Type Activity Date Activity User E-Sign Co-Sign Detail Recorded Client Recorded Date Recorded By Document 04/01/19 12:02 DL [id number] 04/01/19 12:11 DL 04/01/19 12:02 Wound Center Nurse 1 [Ulcer Assessment] 3. R lateral LE -Current Size (cm) - Length 0.7 -Current Size (cm) - Width 0.8 -Current Size (cm) - Depth 0.1 -Total Square Cm 0.56 -Photo Taken No -Exudate Amt None Present -Wound Margin Thickened -Granulation Amt Medium (34-66%) -Granulation Quality Red -Necrosis Amt Medium (34-66%) -Necrotic Tissue Type Adherent Slough -Structure Exposed N/A -Texture (Eden-wound Skin Appearance) Scarring -Moisture (Eden-wound Skin Appearance No Abnormality ) -Color (Eden-wound Skin Appearance) No Abnormality -Temperature (Eden-wound Skin No Abnormality Appearance) (Pt Warm) -Tenderness on Palpation (Eden-wound No Skin Appearance) -Ulcer Cleansing Rinsed/ Irrigated with Saline -Foul Odor after Cleansing No -Anesthetic Used 5% Lidocaine Gel 2. R posterior LE cluster -Current Size (cm) - Length 2.7 -Current Size (cm) - Width 2.6 -Current Size (cm) - Depth 0.1 -Total Square Cm 7.02 -Photo Taken No -Exudate Amt Small -Exudate Type Serosanguineous -Wound Margin Distinct, Outline Attached -Granulation Amt Large (67-100%) -Granulation Quality Hyper- granulation,Red -Slough/Fibrin Yes -Necrosis Amt Small (1-33%) -Necrotic Tissue Type Adherent Slough -Structure Exposed N/A -Texture (Eden-wound Skin Appearance) Scarring -Moisture (Eden-wound Skin Appearance No Abnormality ) -Color (Eden-wound Skin Appearance) No Abnormality -Temperature (Eden-wound Skin No Abnormality Appearance) (Pt Warm) -Tenderness on Palpation (Eden-wound No Skin Appearance) -Ulcer Cleansing Rinsed/ Irrigated with Saline -Foul Odor after Cleansing No -Anesthetic Used 5% Lidocaine Gel [Edema Assessment] -Right Calf (cm) 34.3 -Right Ankle (cm) 19.5 WC - Nurse 2 - General Ulcer CM Notes Start: 04/01/19 12:02 Freq: Status: Active Protocol: Activity Type Activity Date Activity User E-Sign Co-Sign Detail Recorded Client Recorded Date Recorded By Document 04/01/19 12:23 DL [id number] 04/01/19 12:25 DL 04/01/19 12:23 Wound Center Nurse 2 [Procedure/Treatment] 3. R lateral LE -Time 12:24 -Correct Patient Yes -Correct Side, Site, Position Yes -Correct Procedure Yes -Procedure Performed Yes -Type of Procedure Debridement -Clinical Debridement Subcutaneous -Post Debridement Size (cm) - Length 0.8 -Post Debridement Size (cm) - Width 0.8 -Post Debridement Size (cm) - Depth 0.1 -Total Square Cm 0.64 -Wound/Ulcer Outcome Not Healed -Ulcer Cleansing Rinsed/ Irrigated with Saline -Foul Odor after Cleansing No -Bioengineered Tissue No -Bleeding Controlled with Pressure -Offloading No -Treatment Response Procedure Tolerated Well 2. R posterior LE cluster -Time 12:24 -Correct Patient Yes -Correct Side, Site, Position Yes -Correct Procedure Yes -Procedure Performed Yes -Type of Procedure Debridement -Clinical Debridement Subcutaneous -Post Debridement Size (cm) - Length 2.8 -Post Debridement Size (cm) - Width 2.6 -Post Debridement Size (cm) - Depth 0.1 -Total Square Cm 7.28 -Wound/Ulcer Outcome Not Healed -Ulcer Cleansing Rinsed/ Irrigated with Saline -Foul Odor after Cleansing No -Bioengineered Tissue No -Bleeding Controlled with Pressure -Offloading No -Treatment Response Procedure Tolerated Well [See Physician Procedure note for Specifics] Pain Scale: 0-10 Numeric [Pain] -Is Patient Pain Free? Yes Debridement Note Post-Debridement Measurements/Treatment WC - Nurse 2 - General Ulcer CM Notes Start: 04/01/19 12:02 Freq: Status: Active Protocol: Activity Type Activity Date Activity User E-Sign Co-Sign Detail Recorded Client Recorded Date Recorded By Document 04/01/19 12:23 DL [id number] 04/01/19 12:25 DL 04/01/19 12:23 Wound Center Nurse 2 3. R lateral LE -Time 12:24 -Correct Patient Yes -Correct Side, Site, Position Yes -Correct Procedure Yes -Procedure Performed Yes -Type of Procedure Debridement -Clinical Debridement Subcutaneous -Post Debridement Size (cm) - Length 0.8 -Post Debridement Size (cm) - Width 0.8 -Post Debridement Size (cm) - Depth 0.1 -Total Square Cm 0.64 -Wound/Ulcer Outcome Not Healed -Ulcer Cleansing Rinsed/ Irrigated with Saline -Foul Odor after Cleansing No -Bioengineered Tissue No -Bleeding Controlled with Pressure -Offloading No -Treatment Response Procedure Tolerated Well 2. R posterior LE cluster -Time 12:24 -Correct Patient Yes -Correct Side, Site, Position Yes -Correct Procedure Yes -Procedure Performed Yes -Type of Procedure Debridement -Clinical Debridement Subcutaneous -Post Debridement Size (cm) - Length 2.8 -Post Debridement Size (cm) - Width 2.6 -Post Debridement Size (cm) - Depth 0.1 -Total Square Cm 7.28 -Wound/Ulcer Outcome Not Healed -Ulcer Cleansing Rinsed/ Irrigated with Saline -Foul Odor after Cleansing No -Bioengineered Tissue No -Bleeding Controlled with Pressure -Offloading No -Treatment Response Procedure Tolerated Well Pain Scale: 0-10 Numeric Is Patient Pain Free? Yes Wound debrided: #2 Right posterior leg. Laterality: Right Wound Grade/Stage: 2. Type of Debridement: Excisional debridement Anesthesia Used: 4% Lidocaine Solution Depth: Down to and including healthy tissue, in the subcutaneous layer Percentage of wound debrided: 100 Instrument Used: 5mm curette Tissue Removed: subcutaneous tissue. Severity: Fat Layer Exposed Amount of bleeding with debridement: Mild Bleeding Controlled with: Pressure Patient tolerated procedure well - Additional Wound Wound debrided: #3 Right proximal lateral leg. Laterality: Right Wound Grade/Stage: 2. Type of Debridement: Excisional debridement Anesthesia Used: 4% Lidocaine Solution Depth: Down to and including healthy tissue, in the subcutaneous layer Percentage of wound debrided: 100 Instrument Used: 5mm curette Tissue Removed: subcutaneous tissue. Severity: Fat Layer Exposed Amount of bleeding with debridement: Mild Bleeding Controlled with: Pressure Patient tolerated procedure: Patient tolerated procedure well Assessment/Plan Assessment: 1. 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 2. Nonhealing necrotizing cat bite ulcer abscess right proximal lateral leg. 3. Bitten by cat. 4. s/p surgical preparation right posterior leg with incision and drainage and excisonal debridement necrotizing cat bite wound infection abscess (36 cm2) and surgical preparation right proximal lateral leg with incision and drainage and excisional debridement necrotizing cat bite wound infection abscess (24 cm2). Plan: Continue Silver dressing changes daily. She will also have an BERTIN wrap placed to help with edema management of her lower legs. She was placed on Augmentin for her operative cultures that showed Pasteurella multocida, Clostridium species, and Porphyromonas gingivalis and has finished them. Prealbumin from 01/11/19 was 16.8. Encourage nutritional supplementation with protein to help the healing process. Discussed with the patient possible skin graft versus placement of placental connective tissue graft in the Wound Center. She wants to proceed with Epifix placental connective tissue graft. Awaiting insurance approval. Follow up 2 weeks.
== END 2019-04-20 23:59 ==
LOC: WC 11:40
PROVIDERS: Family Provider Family Medicine; PCP Family Medicine; Visit Provider Nurse Practitioner Family
DX: S51.852A Open bite of left forearm, initial encounter (principal); W55.01XA Bitten by cat, initial encounter; S81.851A Open bite, right lower leg, initial encounter; L02.415 Cutaneous abscess of right lower limb; M17.11 Unilateral primary osteoarthritis, right knee
CPT/HCPCS: 11042

== ENCOUNTER 2019-04-29 09:25 | Outpatient (RCR) | payer MEDICARE, MEDICAID, SELFPAY ==
[2019-04-21 00:45] VITALS: BP 148/72; PULSE 97; RESP 18; TEMP 36.2
[2019-04-29 12:06] VITALS: BP 139/73; PULSE 93; RESP 16; TEMP 36.9; BMI 27.2
--- NOTE | 2019-04-29 22:40 | PN.PCM_ITS ---
Type of Wound Date of Service: 04/29/19 Chief Complaint: Cat bite wounds right posterior leg and right proximal lateral leg. History of Wound: Surgery - 01/11/19 - 1. Surgical preparation right posterior leg with incision and drainage and excisonal debridement necrotizing cat bite wound infection abscess (36 cm2). 2. Surgical preparation right proximal lateral leg with incision and drainage and excisional debridement necrotizing cat bite wound infection abscess (24 cm2). Wound care - Silver. Operative culture - Pasteurella multocida, Clostridium species, and Porphyromonas gingivalis. She was discharged on Augmentin and has finished them. CT right leg was done on 01/10/19. It showed soft tissue swelling and gas consistent with bite wound. There is no organized collection. Osteoarthrosis of the right knee. Small knee effusion. Prealbumin fron 01/11/19 was 16.8. Encourage nut ritional supplementation with protein to help the healing process. Today she denies fever. Her appetite is ok. Epifix placental connective tissue graft has been approved. She is thinking about it. Progress of Wound: Improved. - Physical Exam Vital Signs Temp Pulse Resp BP 98.4 F 93 16 139/73 H 04/29/19 12:06 04/29/19 12:06 04/29/19 12:06 04/29/19 12:06 Wound Measurements and Assessment WC - Nurse 1 - General Ulcer Measurement Start: 04/29/19 12:06 Freq: Status: Active Protocol: Activity Type Activity Date Activity User E-Sign Co-Sign Detail Recorded Client Recorded Date Recorded By Document 04/29/19 12:06 MW [id number] 04/29/19 12:14 MW 04/29/19 12:06 Wound Center Nurse 1 [Ulcer Assessment] 3. R lateral LE -Combined with other wound No -Current Size (cm) - Length 0.1 -Current Size (cm) - Width 0.1 -Current Size (cm) - Depth 0.1 -Total Square Cm 0.01 -Photo Taken No -Epithelialization Medium 34-66% -Tunneling No -Undermining/Tunneling No -Circular Undermining No -Exudate Amt None Present -Wound Margin Thickened -Granulation Amt None Present (0 %) -Granulation Quality N/A -Slough/Fibrin Yes -Necrosis Amt Large (67-100%) -Necrotic Tissue Type Adherent Slough -Structure Exposed N/A -Texture (Eden-wound Skin Appearance) Assessed, Scarring -Moisture (Eden-wound Skin Appearance Assessed,Dry/ ) Scaly -Color (Eden-wound Skin Appearance) No Abnormality, Assessed -Temperature (Eden-wound Skin No Abnormality Appearance) (Pt Warm) -Ulcer Cleansing Rinsed/ Irrigated with Saline -Foul Odor after Cleansing No -Anesthetic Used 5% Lidocaine Gel 2. R posterior LE cluster -Combined with other wound No -Current Size (cm) - Length 2.9 -Current Size (cm) - Width 1.4 -Current Size (cm) - Depth 0.1 -Total Square Cm 4.06 -Photo Taken No -Epithelialization Small 1-33% -Tunneling No -Undermining/Tunneling No -Circular Undermining No -Exudate Amt Small -Exudate Type Serosanguineous -Wound Margin Flat & Intact -Granulation Amt Large (67-100%) -Granulation Quality Hyper- granulation -Slough/Fibrin Yes -Necrosis Amt Small (1-33%) -Necrotic Tissue Type Adherent Slough -Structure Exposed N/A -Texture (Eden-wound Skin Appearance) Assessed, Scarring -Moisture (Eden-wound Skin Appearance No Abnormality, ) Assessed -Color (Eden-wound Skin Appearance) No Abnormality, Assessed -Temperature (Eden-wound Skin No Abnormality Appearance) (Pt Warm) -Tenderness on Palpation (Eden-wound No Skin Appearance) -Ulcer Cleansing Rinsed/ Irrigated with Saline -Foul Odor after Cleansing No -Anesthetic Used 5% Lidocaine Gel [Edema Assessment] -Lower Limb Edema Present No -Right Calf (cm) 36.5 -Right Ankle (cm) 20.5 WC - Nurse 2 - General Ulcer CM Notes Start: 04/29/19 12:06 Freq: Status: Active Protocol: Activity Type Activity Date Activity User E-Sign Co-Sign Detail Recorded Client Recorded Date Recorded By Document 04/29/19 12:27 FUNMI [id number] 04/29/19 12:28 FUNMI 04/29/19 12:27 Wound Center Nurse 2 [Procedure/Treatment] 3. R lateral LE -Time 12:28 -Correct Patient Yes -Correct Side, Site, Position Yes -Correct Procedure Yes -Procedure Performed Yes -Type of Procedure Debridement -Clinical Debridement Subcutaneous -Post Debridement Size (cm) - Length 1.0 -Post Debridement Size (cm) - Width 1 -Post Debridement Size (cm) - Depth 0.1 -Total Square Cm 1.0 -Wound/Ulcer Outcome Not Healed -Ulcer Cleansing Rinsed/ Irrigated with Saline -Foul Odor after Cleansing No -Bioengineered Tissue No -Bleeding Controlled with Pressure -Offloading No -Treatment Response Procedure Tolerated Well 2. R posterior LE cluster -Time 12:28 -Correct Patient Yes -Correct Side, Site, Position Yes -Correct Procedure Yes -Procedure Performed Yes -Type of Procedure Debridement -Clinical Debridement Subcutaneous -Post Debridement Size (cm) - Length 2.0 -Post Debridement Size (cm) - Width 0.9 -Post Debridement Size (cm) - Depth 0.2 -Total Square Cm 1.80 -Wound/Ulcer Outcome Not Healed -Ulcer Cleansing Rinsed/ Irrigated with Saline -Foul Odor after Cleansing No -Bioengineered Tissue No -Bleeding Controlled with Pressure -Offloading No -Treatment Response Procedure Tolerated Well [See Physician Procedure note for Specifics] Pain Scale: 0-10 Numeric [Pain] -Is Patient Pain Free? Yes Debridement Note Post-Debridement Measurements/Treatment WC - Nurse 2 - General Ulcer CM Notes Start: 04/29/19 12:06 Freq: Status: Active Protocol: Activity Type Activity Date Activity User E-Sign Co-Sign Detail Recorded Client Recorded Date Recorded By Document 04/29/19 12:27 FUNMI [id number] 04/29/19 12:28 FUNMI 04/29/19 12:27 Wound Center Nurse 2 3. R lateral LE -Time 12:28 -Correct Patient Yes -Correct Side, Site, Position Yes -Correct Procedure Yes -Procedure Performed Yes -Type of Procedure Debridement -Clinical Debridement Subcutaneous -Post Debridement Size (cm) - Length 1.0 -Post Debridement Size (cm) - Width 1 -Post Debridement Size (cm) - Depth 0.1 -Total Square Cm 1.0 -Wound/Ulcer Outcome Not Healed -Ulcer Cleansing Rinsed/ Irrigated with Saline -Foul Odor after Cleansing No -Bioengineered Tissue No -Bleeding Controlled with Pressure -Offloading No -Treatment Response Procedure Tolerated Well 2. R posterior LE cluster -Time 12:28 -Correct Patient Yes -Correct Side, Site, Position Yes -Correct Procedure Yes -Procedure Performed Yes -Type of Procedure Debridement -Clinical Debridement Subcutaneous -Post Debridement Size (cm) - Length 2.0 -Post Debridement Size (cm) - Width 0.9 -Post Debridement Size (cm) - Depth 0.2 -Total Square Cm 1.80 -Wound/Ulcer Outcome Not Healed -Ulcer Cleansing Rinsed/ Irrigated with Saline -Foul Odor after Cleansing No -Bioengineered Tissue No -Bleeding Controlled with Pressure -Offloading No -Treatment Response Procedure Tolerated Well Pain Scale: 0-10 Numeric Is Patient Pain Free? Yes Wound debrided: #2 Right posterior leg. Laterality: Right Wound Grade/Stage: 2. Type of Debridement: Excisional debridement Anesthesia Used: 4% Lidocaine Solution Depth: Down to and including healthy tissue, in the subcutaneous layer Percentage of wound debrided: 100 Instrument Used: 3mm curette Tissue Removed: subcutaneous tissue. Severity: Fat Layer Exposed Amount of bleeding with debridement: Mild Bleeding Controlled with: Pressure Patient tolerated procedure well - Additional Wound Wound debrided: #3 Right proximal lateral leg. Laterality: Right Wound Grade/Stage: 2. Type of Debridement: Excisional debridement Anesthesia Used: 4% Lidocaine Solution Depth: Down to and including healthy tissue, in the subcutaneous layer Percentage of wound debrided: 100 Instrument Used: 3mm curette Tissue Removed: subcutaneous tissue. Severity: Fat Layer Exposed Amount of bleeding with debridement: Mild Bleeding Controlled with: Pressure Patient tolerated procedure: Patient tolerated procedure well Assessment/Plan Assessment: 1. 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 2. Nonhealing necrotizing cat bite ulcer abscess right proximal lateral leg. 3. Bitten by cat. 4. s/p surgical preparation right posterior leg with incision and drainage and excisonal debridement necrotizing cat bite wound infection abscess (36 cm2) and surgical preparation right proximal lateral leg with incision and drainage and excisional debridement necrotizing cat bite wound infection abscess (24 cm2). Plan: Continue Silver dressing changes daily to the right posterior leg ulcer. For the right proximal lateral leg ulcer, Collagen Hydrogel can be used daily. This will be followed by a Tubigrip for compression. She was placed on Augmentin for her operative cultures that showed Pasteurella multocida, Clostridium species, and Porphyromonas gingivalis and has finished them. Prealbumin from 01/11/19 was 16.8. Encourage nutritional supplementation with protein to help the healing process. Discussed with the patient possible skin graft versus placement of placental connective tissue graft in the Wound Center. She is interested in Epifix placental connective tissue graft. It has been approved. She will think about when she wants to start to have it applied. Follow up one week.
== END 2019-05-20 23:59 ==
LOC: WC 09:25
PROVIDERS: Family Provider Family Medicine; PCP Family Medicine; Visit Provider Nurse Practitioner Family
DX: S51.852A Open bite of left forearm, initial encounter (principal); W55.01XA Bitten by cat, initial encounter; S81.851A Open bite, right lower leg, initial encounter; L02.415 Cutaneous abscess of right lower limb; M17.11 Unilateral primary osteoarthritis, right knee
CPT/HCPCS: 11042